=== PATIENT | female | born 1955 | race Caucasian/White ===

== ENCOUNTER → 2021-05-04 | Outpatient (REF) | payer OTHER ==
[~2021-05-04] MED LIST: ATOR40TA75; BUPR-69; CLOP75TA2; FAMO1TAB11; IRON65TA2 PO; LEXA1TAB; MIRA1TAB3; NOXI1TAB PO; OMEP40CA5; POTA1TAB14; PRIM50TA6; PROC10TA5 PO; QUET100T2; ROPI0.5T3; TRAM50TA2; VITA500T40 PO
[2021-05-04 13:55] LABS: BASO % 0.7 % (0.0-1.0); EOS # 0.1 10^3/uL (0.0-0.5); EOS % 1.3 % (0.0-3.0); HEMATOCRIT 32.5 % (36.0-47.0); HEMOGLOBIN 10.1 g/dl (12.0-15.5); LYMPH # 1.6 10^3/uL (1.5-5.0); LYMPH % 34.7 % (24.0-44.0); MEAN CORPUSCULAR HEMOGLOBIN 26.4 pg (27.0-33.0); MEAN CORPUSCULAR HGB CONC 31.1 g/dl (32.0-36.5); MEAN CORPUSCULAR VOLUME 84.9 fl (80.0-96.0); MONO # 0.7 10^3/uL (0.0-0.8); MONO % 15.1 % (2.0-8.0); NEUTROPHILS # 2.2 10^3/uL (1.5-8.5); NEUTROPHILS % 47.8 % (36.0-66.0); PLATELET COUNT, AUTOMATED 190 10^3/uL (150-450); RED BLOOD COUNT 3.83 10^6/uL (4.00-5.40); WHITE BLOOD COUNT 4.6 10^3/uL (4.0-10.0)
[2021-05-04 14:35] LABS: ALBUMIN 3.9 GM/DL (3.2-5.2); ALT/SGPT 19 U/L (12-78); BILIRUBIN,TOTAL 0.4 MG/DL (0.2-1.0); BLOOD UREA NITROGEN 10 MG/DL (7-18); CALCIUM LEVEL 8.5 MG/DL (8.8-10.2); CARBON DIOXIDE LEVEL 30 MEQ/L (21-32); CHLORIDE LEVEL 101 MEQ/L (98-107); CHOLESTEROL LEVEL 210 MG/DL (<200); CREATININE FOR GFR 0.74 MG/DL (0.55-1.30); GLOMERULAR FILTRATION RATE > 60.0 (>45); GLUCOSE, FASTING 76 MG/DL (70-100); HDL CHOLESTEROL 50 MG/DL (>40); LDL CHOLESTEROL 140 MG/DL (<100); NON-HDL-C 160 MG/DL; POTASSIUM SERUM 4.4 MEQ/L (3.5-5.1); SODIUM LEVEL 134 MEQ/L (136-145); TOTAL PROTEIN 7.1 GM/DL (6.4-8.2); TRIGLYCERIDES LEVEL 99 MG/DL (<150)
[2021-05-04 17:23] LABS: HEMOGLOBIN A1c 5.1 %
== END ==
LOC: M SFHCADAM 11:13
PROVIDERS: ATTEND Physician Assistant Medical
DX: C34.92 Malignant neoplasm of unspecified part of left bronchus or lung (principal); I73.9 Peripheral vascular disease, unspecified; K21.9 Gastro-esophageal reflux disease without esophagitis; G25.81 Restless legs syndrome; F32.0 Major depressive disorder, single episode, mild; F51.01 Primary insomnia; I10 Essential (primary) hypertension

== ENCOUNTER → 2021-06-10 | Outpatient (CLI) | payer MEDICARE, OTHER ==
[~2021-06-10] MED LIST changes: -ATOR40TA75; -IRON65TA2 PO; -NOXI1TAB PO; +OMEP-221; -OMEP40CA5; +PROC10TA4 PO; -PROC10TA5 PO; -VITA500T40 PO
== END ==
LOC: M ADAMS 14:47
PROVIDERS: ATTEND Physician Assistant Medical
DX: Z53.9 Procedure and treatment not carried out, unspecified reason (principal)

== ENCOUNTER → 2021-06-10 | Outpatient (REF) | payer OTHER ==
[2021-06-10 17:08] LABS: APPEARANCE, URINE CLEAR (CLEAR); BACTERIA, URINE AUTO NEGATIVE (NEGATIVE); BILIRUBIN, URINE AUTO NEGATIVE (NEGATIVE); BLOOD, URINE BLOOD NEGATIVE (NEGATIVE); COLOR, URINE STRAW (YELLOW); GLUCOSE, URINE (UA) AUTO NEGATIVE (NEGATIVE); KETONE, URINE AUTO NEGATIVE (NEGATIVE); LEUKOCYTE ESTERASE, URINE AUTO NEGATIVE (NEGATIVE); NITRITE, URINE AUTO NEGATIVE (NEGATIVE); PROTEIN, URINE AUTO NEGATIVE (NEGATIVE); RBC, URINE AUTO 1 /HPF (0-3); SPECIFIC GRAVITY URINE AUTO 1.011 (1.002-1.035); SQUAMOUS EPITHELIAL CELL UR AU 1 /HPF (0-6); UROBILINOGEN, URINE AUTO 0.2 mg/dL (0.0-2.0); WBC, URINE AUTO 0 /HPF (0-3)
== END ==
LOC: M SFHCADAM 15:59
PROVIDERS: ATTEND Physician Assistant Medical
DX: R30.0 Dysuria (principal); R35.0 Frequency of micturition; M54.5 Low back pain

== ENCOUNTER → 2021-06-11 | Outpatient (CLI) | payer OTHER ==
--- NOTE | 2021-06-11 13:51 | REP ---
INDICATION: ACUTE MIDLINE LOW BACK PAIN WITHOUT SCIATICA. COMPARISON: None. TECHNIQUE: Five views lumbosacral spine. FINDINGS: There is mild compression of L4. This is of indeterminate age since there are no prior studies for comparison. There is very mild anterolisthesis of L4 on L5. There is no spondylolysis. There is mild disc space narrowing at L4-5. There is sclerosis and spurring at the posterior facet joints of L4-5 and L5-S1. There are vascular calcifications present without definite radiographic evidence of abdominal aortic aneurysm. The posterior elements are intact. There is slight curvature toward the right. IMPRESSION: Mild compression of the L4 vertebral body could be acute. Otherwise there are mild degenerative changes as discussed above. <Electronically signed by Arvind Mckinnon > 06/11/21 [id number]
== END ==
LOC: M ADAMS 12:59
PROVIDERS: ATTEND Physician Assistant Medical
DX: M51.36 Other intervertebral disc degeneration, lumbar region (principal); M54.5 Low back pain

== ENCOUNTER → 2021-08-16 | Outpatient (CLI) | payer MEDICARE, OTHER ==
[~2021-08-16] MED LIST changes: +ATOR40TA75; +GASTROGRAFIN SOLUTION 30ML (Q9963) As Ordered ONE; +IRON65TA2 PO; +ISOVUE-370 76% 100ML VIAL As Ordered ONE; +NOXI1TAB PO; +VITA500T40 PO
--- NOTE | 2021-08-18 15:12 | REP ---
INDICATION: LUNG CA COMPARISON: Multiple the latest 10/23/2020 all from an outside institution TECHNIQUE: Standard helical technique after the intravenous administration of 100 cc Isovue 370 FINDINGS: The mediastinum and pulmonary nacho are essentially unchanged. There is a prominent right hilar lymph nodes status quo. There are no pleural or pericardial effusions. There is no significant change in appearance of the osseous structures. There is a left 6th rib fracture posteriorly which has not yet healed. There are additional left rib fractures, however, they are unchanged and have healed Evaluation of the lung han shows a stable 5 mm size nodule seen in the lateral basal segment of the left lower lobe. There is a stable 4 mm sized pleural base nodule in the right lower lobe. There are incidental calcified granulomas status quo. There are unchanged curvilinear densities in the left lower lobe status quo. Patient is status post left upper lobectomy. There are no new abnormal nodules, masses, or opacities. IMPRESSION: 1. Stable lung nodules. 2. Nonhealing left 6th rib. Clinical correlation is recommended. 3. Other findings as described above. <Electronically signed by Tera Patterson > 08/18/21 [id number]
--- NOTE | 2021-08-18 15:25 | REP ---
INDICATION: LUNG CA. COMPARISON: There are no prior CT examinations of the abdomen and pelvis for comparison. The imaged upper abdomen obtained during the latest CT of the chest of 10/23/2020 from an outside institution was reviewed. TECHNIQUE: Standard helical technique after the intravenous administration of 100 cc Isovue 370. Oral bowel preparatory contrast was also administered prior to the exam. FINDINGS: There are numerous nonenhancing scattered low-density lesions throughout the liver. Some are too small for CT characterization. The larger lesions all have water density Hounsfield unit readings some of which were imaged on the prior exam. There is 1 low-density lesion in the anterior segment of the right lobe of the liver which measures 1 cm and has measurable contrast-enhancement when the immediate phase imaging is compared to the delayed phase imaging. The spleen, pancreas, right adrenal gland, and kidneys are within normal limits. In the left adrenal gland there is a 1.3 cm sized nodule which does not appear to be significantly changed compared to the prior exam and has consistently low density Hounsfield unit readings. There is calcific atherosclerotic change seen in the abdominal aorta. There is no para-aortic adenopathy. The bowel loops and the mesenteries are within normal limits. There is no evidence of free fluid or free air. There is no evidence of a mass or adenopathy. There is a ventral hernia which is unchanged when compared to those lung base images obtained on that prior chest CT. Bone window technique throughout the exam shows spinal degenerative changes and increased density in the upper half of the L4 vertebral body with what appears to be a slight grade 1 age undetermined superior endplate compression deformity. IMPRESSION: 1. Liver lesions as described above. For the most part the ones large enough to characterize with CT represent simple cysts, however, there is a single 1 cm sized lesion which shows measurable enhancement. Pre and post gadolinium enhanced hepatic MRI is recommended. 2. Benign left adrenal gland nodule. 3. Small ventral hernia unchanged as described above. 4. Findings involving L4 as described above which should be correlated clinically. If metastatic disease is of clinical concern then I would recommend follow-up with gadolinium enhanced MRI. 5. Other findings as described above. <Electronically signed by Tera Patterson > 08/18/21 [id number]
== END ==
LOC: M RAD 13:13
PROVIDERS: ATTEND Physician Assistant Medical
DX: S22.32XA Fracture of one rib, left side, initial encounter for closed fracture (principal); R93.5 Abnormal findings on diagnostic imaging of other abdominal regions, including retroperitoneum; C34.92 Malignant neoplasm of unspecified part of left bronchus or lung
CPT/HCPCS: 71260; 74177; Q9963; Q9967

== ENCOUNTER → 2021-08-30 | Outpatient (CLI) | payer MEDICARE, MEDICAID ==
[~2021-08-30] MED LIST changes: -GASTROGRAFIN SOLUTION 30ML (Q9963) As Ordered ONE; -ISOVUE-370 76% 100ML VIAL As Ordered ONE; -OMEP-221; +OMEP40CA5; -PROC10TA4 PO; +PROC10TA5 PO
== END ==
LOC: M PLARAD 11:56
PROVIDERS: ATTEND Internal Medicine Hematology & Oncology
DX: C34.90 Malignant neoplasm of unspecified part of unspecified bronchus or lung (principal)
CPT/HCPCS: 78815; A9552

== ENCOUNTER → 2022-06-16 | Outpatient (CLI) | payer MEDICARE, MEDICAID | LOC: M CARPUL 10:45 | PROVIDERS: ATTEND Internal Medicine Pulmonary Disease | DX: J44.9 Chronic obstructive pulmonary disease, unspecified (principal) ==

== ENCOUNTER → 2022-09-05 | Outpatient (CLI) | payer MEDICARE, MEDICAID | LOC: M PLAIMG 13:01 | PROVIDERS: ATTEND Internal Medicine Pulmonary Disease | DX: C34.12 Malignant neoplasm of upper lobe, left bronchus or lung (principal) ==

== ENCOUNTER 2022-09-20 11:23 | Inpatient (IN) | payer MEDICARE, MEDICAID ==
[~2022-09-20 11:23] MED LIST changes: -CLOP75TA2; +CLOP75TA2 PO; -FAMO1TAB11; +FAMO1TAB11 PO; -LEXA1TAB; +LEXA1TAB PO; -OMEP40CA5; +OMEP40CA5 PO; -QUET100T2; +QUET100T2 PO; -TRAM50TA2; +TRAM50TA2 PO
[2022-09-20 12:16] LABS: BASO % 0.2 % (0.0-1.0); EOS % 0.5 % (0.0-3.0); HEMATOCRIT 33.3 % (36.0-47.0); HEMOGLOBIN 10.4 g/dl (12.0-15.5); LYMPH # 0.3 10^3/uL (1.5-5.0); LYMPH % 7.9 % (24.0-44.0); MEAN CORPUSCULAR HEMOGLOBIN 28.1 pg (27.0-33.0); MEAN CORPUSCULAR HGB CONC 31.2 g/dl (32.0-36.5); MONO # 0.4 10^3/uL (0.0-0.8); MONO % 8.3 % (2.0-8.0); NEUTROPHILS # 3.5 10^3/uL (1.5-8.5); NEUTROPHILS % 82.9 % (36.0-66.0); PLATELET COUNT, AUTOMATED 102 10^3/uL (150-450); WHITE BLOOD COUNT 4.2 10^3/uL (4.0-10.0)
[2022-09-20 12:37] LABS: BLOOD UREA NITROGEN 14 MG/DL (9-23); CALCIUM LEVEL 8.3 MG/DL (8.3-10.6); CARBON DIOXIDE LEVEL 25 MMOL/L (20-31); CHLORIDE LEVEL 105 MMOL/L (98-107); CREATININE FOR GFR 0.83 MG/DL (0.55-1.30); GLOMERULAR FILTRATION RATE > 60.0 (>45); GLUCOSE, FASTING 105 MG/DL (74-106); POTASSIUM SERUM 3.9 MMOL/L (3.5-5.1); SODIUM LEVEL 137 MMOL/L (136-145)
[2022-09-20 12:41] LABS: THYROID STIMULATING HORMONE 2.759 uIU/ML (0.55-4.78)
[2022-09-20] MEDS ORDERED: METOPROLOL TART 25 MG TABLET PO ONE ×2 (12:45→13:40)
[2022-09-20] MEDS: METOPROLOL 5 MG/5 ML VIAL IV PRN ×6 (13:02→14:19)
[2022-09-20] MEDS ORDERED: ACETAMINOPHEN TAB 650MG DOSE (2X325MG) PO ONE (13:15)
[2022-09-20] MEDS ORDERED: APIXABAN 5 MG TAB (ELIQUIS) PO ONE (14:00)
[2022-09-20] MEDS ORDERED: ALBUTEROL 90 MCG/ACT 8GM HFA INHALER INH PRN (17:35)
[2022-09-20] MEDS ORDERED: ISOVUE-370 76% 100ML VIAL As Ordered ONE (18:06)
[2022-09-20] MEDS ORDERED: PANTOPRAZOLE 40MG TAB (PROTONIX) PO ONE (18:30)
[2022-09-20 18:44] LABS: HEMOGLOBIN A1c 5.2 % (4.0-6.0)
[2022-09-20] MEDS ORDERED: ROPI4TAB3 PO (19:20)
[2022-09-20] MEDS ORDERED: BENZ-18 PO (19:20)
[2022-09-20] MEDS ORDERED: TREL1AER INH (19:20)
[2022-09-20 19:24] LABS: INR 1.36
[2022-09-20 19:25] LABS: PARTIAL THROMBOPLASTIN TIME 29.6 SECONDS (24.8-34.2)
[2022-09-20] MEDS ORDERED: LEXA1TAB PO (19:35)
[2022-09-20] MEDS ORDERED: PRAM0.123 PO (19:35)
[2022-09-20] MEDS ORDERED: GABA-1171 PO (19:50)
[2022-09-20] MEDS ORDERED: LOSA50TA28 PO (19:50)
[2022-09-20] MEDS ORDERED: HOME MED LIST COMPLETE! XX SCH (19:55)
[2022-09-20 20:50] LABS: CHOLESTEROL LEVEL 129 MG/DL (<200); CHOLESTEROL RISK RATIO 2.14 (<5); HDL CHOLESTEROL 60.2 MG/DL (>40); LDL CHOLESTEROL 59.8 MG/DL (<100); NON-HDL-C 69 MG/DL; TRIGLYCERIDES LEVEL 45 MG/DL (<150)
[2022-09-20] MEDS: METOPROLOL TART 50 MG TAB PO SCH (21:00)
[2022-09-20 22:12] VITALS: BP 145/94
[2022-09-20] MEDS ORDERED: QUEtiapine FUMARATE 100 MG TAB PO ONE (23:15)
[2022-09-20] MEDS: OSELTAMIVIR PHOSPHATE 75 MG CAP (TAMIFLU) PO SCH (23:56)
[2022-09-21] VITALS (9 sets, daily range): BP systolic 132–160; BP diastolic 84–99
[2022-09-21] MEDS: IPRATROPIUM 0.5MG/ALBUTEROL 2.5MG INH SOL UD 3ML (DUONEB) NEB SCH ×4 (01:00→19:23)
[2022-09-21] MEDS: METOPROLOL TART 50 MG TAB PO SCH (04:59)
[2022-09-21 05:49] LABS: HEMATOCRIT 32.4 % (36.0-47.0); HEMOGLOBIN 10.4 g/dl (12.0-15.5); MEAN CORPUSCULAR HEMOGLOBIN 28.4 pg (27.0-33.0); MEAN CORPUSCULAR HGB CONC 32.1 g/dl (32.0-36.5); MEAN CORPUSCULAR VOLUME 88.5 fl (80.0-96.0); PLATELET COUNT, AUTOMATED 106 10^3/uL (150-450); RED BLOOD COUNT 3.66 10^6/uL (4.00-5.40); WHITE BLOOD COUNT 3.2 10^3/uL (4.0-10.0)
[2022-09-21 06:13] LABS: BLOOD UREA NITROGEN 16 MG/DL (9-23); CALCIUM LEVEL 8.1 MG/DL (8.3-10.6); CARBON DIOXIDE LEVEL 26 MMOL/L (20-31); CHLORIDE LEVEL 103 MMOL/L (98-107); CREATININE FOR GFR 0.95 MG/DL (0.55-1.30); GLOMERULAR FILTRATION RATE > 60.0 (>45); GLUCOSE, FASTING 110 MG/DL (74-106); POTASSIUM SERUM 3.8 MMOL/L (3.5-5.1); SODIUM LEVEL 136 MMOL/L (136-145)
[2022-09-21] MEDS: ROSUVASTATIN 10 MG TAB (CRESTOR) PO SCH (08:22)
[2022-09-21] MEDS: APIXABAN 5 MG TAB (ELIQUIS) PO SCH ×2 (08:22→20:03)
[2022-09-21] MEDS: OSELTAMIVIR PHOSPHATE 75 MG CAP (TAMIFLU) PO SCH ×2 (08:22→20:03)
[2022-09-21] MEDS: FERROUS SULFATE 325MG TAB PO SCH (08:22)
[2022-09-21] MEDS: GABAPENTIN 100 MG CAP PO SCH ×2 (09:00→20:03)
[2022-09-21] MEDS ORDERED: ELIQ5TAB PO (09:08)
[2022-09-21] MEDS ORDERED: BENZONATATE 100MG CAPSULE PO PRN (11:55)
[2022-09-21] MEDS: rOPINIRole 1MG TAB PO SCH ×3 (12:52→20:03)
[2022-09-21] MEDS: ESCITALOPRAM OXALATE 10 MG TAB (LEXAPRO) PO SCH (12:52)
[2022-09-21] MEDS ORDERED: METOPROLOL TART 25 MG TABLET PO ONE (15:25)
[2022-09-21] MEDS: FAMOTIDINE 20 MG TAB PO SCH (15:32)
[2022-09-21] MEDS ORDERED: ONDANSETRON 4MG 2ML VIAL IV PRN (17:25)
[2022-09-21] MEDS: METOPROLOL TARTRATE 100MG TAB PO SCH (20:03)
[2022-09-21] MEDS: QUEtiapine FUMARATE 100 MG TAB PO SCH (20:03)
[2022-09-21] MEDS ORDERED: METOPROLOL TART 25 MG TABLET PO SCH (21:00)
[2022-09-22] VITALS (7 sets, daily range): BP systolic 120–150; BP diastolic 77–98
[2022-09-22] MEDS: IPRATROPIUM 0.5MG/ALBUTEROL 2.5MG INH SOL UD 3ML (DUONEB) NEB SCH ×4 (01:15→19:56)
[2022-09-22] MEDS ORDERED: FUROSEMIDE 20 MG TAB PO ONE (06:25)
[2022-09-22 08:11] LABS: BASO % 0.2 % (0.0-1.0); EOS % 0.2 % (0.0-3.0); HEMATOCRIT 36.6 % (36.0-47.0); HEMOGLOBIN 11.3 g/dl (12.0-15.5); LYMPH # 1.6 10^3/uL (1.5-5.0); MEAN CORPUSCULAR HEMOGLOBIN 27.9 pg (27.0-33.0); MEAN CORPUSCULAR HGB CONC 30.9 g/dl (32.0-36.5); MEAN CORPUSCULAR VOLUME 90.4 fl (80.0-96.0); MONO # 0.7 10^3/uL (0.0-0.8); MONO % 13.7 % (2.0-8.0); NEUTROPHILS # 2.5 10^3/uL (1.5-8.5); NEUTROPHILS % 52.5 % (36.0-66.0); PLATELET COUNT, AUTOMATED 120 10^3/uL (150-450); RED BLOOD COUNT 4.05 10^6/uL (4.00-5.40); WHITE BLOOD COUNT 4.8 10^3/uL (4.0-10.0)
[2022-09-22] MEDS: OSELTAMIVIR PHOSPHATE 75 MG CAP (TAMIFLU) PO SCH ×2 (08:29→21:23)
[2022-09-22] MEDS: rOPINIRole 1MG TAB PO SCH ×4 (08:30→21:24)
[2022-09-22] MEDS: GABAPENTIN 100 MG CAP PO SCH ×2 (08:30→21:24)
[2022-09-22] MEDS: APIXABAN 5 MG TAB (ELIQUIS) PO SCH ×2 (08:30→21:24)
[2022-09-22] MEDS: FERROUS SULFATE 325MG TAB PO SCH (08:31)
[2022-09-22] MEDS: ROSUVASTATIN 10 MG TAB (CRESTOR) PO SCH (08:31)
[2022-09-22] MEDS: FAMOTIDINE 20 MG TAB PO SCH (08:31)
[2022-09-22] MEDS: ESCITALOPRAM OXALATE 10 MG TAB (LEXAPRO) PO SCH (08:31)
[2022-09-22] MEDS: METOPROLOL TARTRATE 100MG TAB PO SCH ×2 (08:32→21:25)
[2022-09-22] MEDS ORDERED: ESCITALOPRAM OXALATE 10 MG TAB (LEXAPRO) PO SCH (09:00)
[2022-09-22] MEDS ORDERED: DIGOXIN INJ 0.5 MG/2 ML AMP IV ONE (13:00)
[2022-09-22] MEDS: FUROSEMIDE 20MG/2ML VIAL IV SCH (16:34)
[2022-09-22] MEDS ORDERED: DIGOXIN 0.25 MG TAB PO ONE (19:00)
[2022-09-22] MEDS: QUEtiapine FUMARATE 100 MG TAB PO SCH (21:23)
[2022-09-23] MEDS: IPRATROPIUM 0.5MG/ALBUTEROL 2.5MG INH SOL UD 3ML (DUONEB) NEB SCH ×2 (02:00→08:00)
[2022-09-23 04:00] VITALS: BP 133/83
[2022-09-23 08:00] VITALS: BP 165/87
[2022-09-23] MEDS: ESCITALOPRAM OXALATE 10 MG TAB (LEXAPRO) PO SCH (08:20)
[2022-09-23] MEDS: GABAPENTIN 100 MG CAP PO SCH (08:20)
[2022-09-23] MEDS: OSELTAMIVIR PHOSPHATE 75 MG CAP (TAMIFLU) PO SCH (08:20)
[2022-09-23] MEDS: APIXABAN 5 MG TAB (ELIQUIS) PO SCH (08:20)
[2022-09-23] MEDS: FAMOTIDINE 20 MG TAB PO SCH (08:20)
[2022-09-23] MEDS: ROSUVASTATIN 10 MG TAB (CRESTOR) PO SCH (08:20)
[2022-09-23] MEDS: FERROUS SULFATE 325MG TAB PO SCH (08:20)
[2022-09-23] MEDS: rOPINIRole 1MG TAB PO SCH (08:20)
[2022-09-23] MEDS: METOPROLOL TARTRATE 100MG TAB PO SCH (08:21)
[2022-09-23] MEDS: FUROSEMIDE 20MG/2ML VIAL IV SCH (08:22)
[2022-09-23] MEDS ORDERED: DIGO0.123 PO (09:18)
[2022-09-23] MEDS ORDERED: OSEL75CA PO (09:18)
[2022-09-23] MEDS ORDERED: METO100T5 PO (09:18)
== END 2022-09-23 10:59 | disposition home or self-care (01) | DRG 309 ==
LOC: M ED 11:23 → EDBD 11:23 → M ED INP 16:46 → M PCU 22:06
PROVIDERS: ADMIT Internal Medicine; ATTEND Internal Medicine
PROC: B246ZZZ Ultrasonography of Right and Left Heart (ICD-10-PCS; principal; 2022-09-21)
DX: I48.91 Unspecified atrial fibrillation (principal); I50.22 Chronic systolic (congestive) heart failure; F32.A Depression, unspecified; F41.9 Anxiety disorder, unspecified; K21.9 Gastro-esophageal reflux disease without esophagitis; D50.9 Iron deficiency anemia, unspecified; G25.81 Restless legs syndrome; I73.9 Peripheral vascular disease, unspecified; D69.6 Thrombocytopenia, unspecified; R14.0 Abdominal distension (gaseous); I71.20 Thoracic aortic aneurysm, without rupture, unspecified; I11.0 Hypertensive heart disease with heart failure; J10.1 Influenza due to other identified influenza virus with other respiratory manifestations; J44.9 Chronic obstructive pulmonary disease, unspecified; I42.8 Other cardiomyopathies; Z85.118 Personal history of other malignant neoplasm of bronchus and lung; Z90.2 Acquired absence of lung [part of]; Z87.891 Personal history of nicotine dependence; Z95.820 Peripheral vascular angioplasty status with implants and grafts; Z79.01 Long term (current) use of anticoagulants; Z79.899 Other long term (current) drug therapy; Z88.6 Allergy status to analgesic agent

== ENCOUNTER 2022-10-17 19:55 | Observation (INO) | payer MEDICARE, MEDICAID ==
[~2022-10-17] VITALS: Ht 154.9 cm; Wt 78.7 kg
[~2022-10-17 19:55] MED LIST changes: +BENZ-18 PO; +DIGO0.123 PO; +ELIQ5TAB PO; +GABA-1171 PO; +LOSA50TA28 PO; +METO100T5 PO; +OSEL75CA PO; +PRAM0.123 PO; +ROPI4TAB3 PO; +TREL1AER INH
[2022-10-17] MEDS ORDERED: AMIO200T49 PO (20:45)
[2022-10-17] MEDS ORDERED: LOSA50TA28 PO (20:45)
[2022-10-17] MEDS ORDERED: ATOR40TA75 PO (20:45)
[2022-10-18] MEDS ORDERED: ALBUTEROL SULFATE 2.5MG/0.5ML INH NEB SOLN INH ONE ×2 (07:10→17:30)
[2022-10-18] MEDS ORDERED: IPRATROPIUM 0.5MG/ALBUTEROL 2.5MG INH SOL UD 3ML (DUONEB) NEB ONE (07:10)
[2022-10-18] MEDS ORDERED: methylPREDNISolone 125MG 2ML VIAL IV ONE (07:10)
[2022-10-18] MEDS ORDERED: LOSARTAN 25 MG TAB PO ONE (07:15)
[2022-10-18] MEDS ORDERED: METOPROLOL TARTRATE 100MG TAB PO ONE (07:15)
[2022-10-18] MEDS ORDERED: APIXABAN 5 MG TAB (ELIQUIS) PO ONE (07:15)
[2022-10-18] MEDS ORDERED: rOPINIRole 2MG TAB PO STA (08:04)
[2022-10-18 08:09] LABS: BASO % 0.3 % (0.0-1.0); EOS % 0.5 % (0.0-3.0); HEMATOCRIT 33.5 % (36.0-47.0); HEMOGLOBIN 10.8 g/dl (12.0-15.5); LYMPH # 0.9 10^3/uL (1.5-5.0); LYMPH % 15.2 % (24.0-44.0); MEAN CORPUSCULAR HEMOGLOBIN 28.8 pg (27.0-33.0); MEAN CORPUSCULAR HGB CONC 32.2 g/dl (32.0-36.5); MEAN CORPUSCULAR VOLUME 89.3 fl (80.0-96.0); MONO # 0.4 10^3/uL (0.0-0.8); MONO % 6.5 % (2.0-8.0); NEUTROPHILS # 4.6 10^3/uL (1.5-8.5); NEUTROPHILS % 76.8 % (36.0-66.0); PLATELET COUNT, AUTOMATED 114 10^3/uL (150-450); RED BLOOD COUNT 3.75 10^6/uL (4.00-5.40)
[2022-10-18 08:16] VITALS: BP 167/83
[2022-10-18] MEDS ORDERED: ISOVUE-370 76% 100ML VIAL As Ordered ONE (08:35)
[2022-10-18 08:41] LABS: ALBUMIN 3.9 G/DL (3.2-5.2); BILIRUBIN,DIRECT 0.4 MG/DL (<0.4); BILIRUBIN,TOTAL 0.9 MG/DL (0.3-1.2); CALCIUM LEVEL 8.5 MG/DL (8.3-10.6); CREATININE FOR GFR 0.98 MG/DL (0.55-1.30); GLOMERULAR FILTRATION RATE 59.9 (>45); POTASSIUM SERUM 4.2 MMOL/L (3.5-5.1); TOTAL PROTEIN 6.6 G/DL (5.7-8.2)
[2022-10-18 08:43] LABS: THYROID STIMULATING HORMONE 8.95 uIU/ML (0.55-4.78); THYROXINE (T4) 9.5 UG/DL (4.5-10.9)
[2022-10-18 08:52] LABS: INR 1.09; PROTHROMBIN TIME 14.3 SECONDS (12.5-14.5)
[2022-10-18 08:53] LABS: PARTIAL THROMBOPLASTIN TIME 28.1 SECONDS (24.8-34.2)
[2022-10-18] MEDS ORDERED: ELIQ5TAB PO (09:59)
[2022-10-18] MEDS ORDERED: LOSA25TA13 PO (09:59)
[2022-10-18] MEDS ORDERED: METO100T5 PO (09:59)
[2022-10-18] MEDS ORDERED: POTA-151 PO (10:09)
[2022-10-18] MEDS ORDERED: CLOT10TR PO (10:09)
[2022-10-18] MEDS ORDERED: ALB2.5NEB NEB (10:09)
[2022-10-18] MEDS ORDERED: CILO50TA2 PO (10:14)
[2022-10-18] MEDS ORDERED: HOME MED LIST COMPLETE! XX SCH (10:15)
[2022-10-18] MEDS ORDERED: BENZONATATE 100MG CAPSULE PO PRN (12:05)
[2022-10-18] MEDS ORDERED: FAMOTIDINE 20 MG TAB PO PRN (12:05)
[2022-10-18 12:36] LABS: CK-MB VALUE MASS 2.1 NG/ML (<3.6); MB/CK RELATIVE INDEX 2.65 (< OR =4)
[2022-10-18 12:42] LABS: CK-MB VALUE MASS 2.6 NG/ML (<3.6); MB/CK RELATIVE INDEX 3.33 (< OR =4)
[2022-10-18] MEDS: FUROSEMIDE 40MG/4ML VIAL IV SCH ×2 (13:21→21:59)
[2022-10-18] MEDS: POTASSIUM CHLORIDE 10MEQ SR TABLET PO SCH (13:43)
[2022-10-18] MEDS: ATORVASTATIN 20 MG TAB PO SCH (13:44)
[2022-10-18] MEDS: AMIODARONE 200 MG TAB (PACERONE) PO SCH (13:44)
[2022-10-18] MEDS: ESCITALOPRAM OXALATE 10 MG TAB (LEXAPRO) PO SCH (13:44)
[2022-10-18] MEDS: rOPINIRole 1MG TAB PO SCH ×2 (16:36→22:02)
[2022-10-18] MEDS ORDERED: LIDOCAINE 2% 100MG/5ML SDV (FOR ANES.) As Ordered ONE (18:31)
[2022-10-18] MEDS ORDERED: propofoL 200 MG/20 ML VIAL As Ordered ONE (18:31)
[2022-10-18] MEDS ORDERED: fentaNYL 100 MCG/2 ML INJECTION As Ordered ONE (18:31)
[2022-10-18 19:53] VITALS: BP 136/81
[2022-10-18] MEDS ORDERED: METOPROLOL TARTRATE 100MG TAB PO SCH (21:00)
[2022-10-18] MEDS ORDERED: QUEtiapine FUMARATE 100 MG TAB PO SCH (21:00)
[2022-10-18] MEDS ORDERED: ALBUTEROL SULFATE 2.5MG/0.5ML INH NEB SOLN NEB SCH (21:00)
[2022-10-18] MEDS ORDERED: RAMELTEON 8 MG TAB (ROZEREM) PO PRN (21:25)
[2022-10-18] MEDS ORDERED: ACETAMINOPHEN TAB 650MG DOSE (2X325MG) PO PRN (21:35)
[2022-10-18] MEDS: APIXABAN 5 MG TAB (ELIQUIS) PO SCH (22:03)
[2022-10-18] MEDS: GABAPENTIN 100 MG CAP PO SCH (22:04)
[2022-10-18] MEDS: ALBUTEROL SULFATE 2.5MG/0.5ML INH NEB SOLN NEB SCH (22:08)
[2022-10-18] MEDS: FLUTICASONE HFA 110MCG 12GM INHALER (FLOVENT) INH SCH (22:11)
[2022-10-18] MEDS: PRAMIPEXOLE (MIRAPEX) 0.125 MG TAB PO SCH (23:25)
[2022-10-19] VITALS: BP 129/65
[2022-10-19 04:00] VITALS: BP 165/74
[2022-10-19 05:40] LABS: HEMATOCRIT 33.9 % (36.0-47.0); HEMOGLOBIN 10.9 g/dl (12.0-15.5); MEAN CORPUSCULAR HEMOGLOBIN 28.5 pg (27.0-33.0); MEAN CORPUSCULAR HGB CONC 32.2 g/dl (32.0-36.5); MEAN CORPUSCULAR VOLUME 88.7 fl (80.0-96.0); PLATELET COUNT, AUTOMATED 139 10^3/uL (150-450); RED BLOOD COUNT 3.82 10^6/uL (4.00-5.40); WHITE BLOOD COUNT 8.2 10^3/uL (4.0-10.0)
[2022-10-19 06:15] LABS: MAGNESIUM LEVEL 1.9 MG/DL (1.8-2.4)
[2022-10-19] MEDS: FLUTICASONE HFA 110MCG 12GM INHALER (FLOVENT) INH SCH (06:17)
[2022-10-19] MEDS: ALBUTEROL SULFATE 2.5MG/0.5ML INH NEB SOLN NEB SCH ×2 (06:17→19:38)
[2022-10-19 06:18] LABS: CALCIUM LEVEL 8.2 MG/DL (8.3-10.6); CREATININE FOR GFR 1.44 MG/DL (0.55-1.30); GLOMERULAR FILTRATION RATE 38.4 (>45); POTASSIUM SERUM 4.3 MMOL/L (3.5-5.1)
[2022-10-19 07:36] VITALS: BP 155/84
[2022-10-19] MEDS ORDERED: LR 500 ML IV ONE (08:10)
[2022-10-19] MEDS ORDERED: LOSARTAN 25 MG TAB PO SCH (09:00)
[2022-10-19] MEDS: POTASSIUM CHLORIDE 10MEQ SR TABLET PO SCH (09:04)
[2022-10-19] MEDS: GABAPENTIN 100 MG CAP PO SCH ×2 (09:04→21:28)
[2022-10-19] MEDS: rOPINIRole 1MG TAB PO SCH ×4 (09:05→21:28)
[2022-10-19] MEDS: APIXABAN 5 MG TAB (ELIQUIS) PO SCH ×2 (09:05→21:28)
[2022-10-19] MEDS: ATORVASTATIN 20 MG TAB PO SCH (09:05)
[2022-10-19] MEDS: ESCITALOPRAM OXALATE 10 MG TAB (LEXAPRO) PO SCH (09:05)
[2022-10-19] MEDS: AMIODARONE 200 MG TAB (PACERONE) PO SCH (09:05)
[2022-10-19 12:00] VITALS: BP 160/62
[2022-10-19 12:11] LABS: CALCIUM LEVEL 7.9 MG/DL (8.3-10.6); CREATININE FOR GFR 1.58 MG/DL (0.55-1.30); GLOMERULAR FILTRATION RATE 34.5 (>45); POTASSIUM SERUM 4.2 MMOL/L (3.5-5.1)
[2022-10-19] MEDS: IPRATROPIUM 0.5MG/ALBUTEROL 2.5MG INH SOL UD 3ML (DUONEB) NEB PRN (12:31)
[2022-10-19 15:19] LABS: CREATININE,RANDOM URINE 206.6 MG/DL
[2022-10-19 16:00] VITALS: BP 145/62
[2022-10-19 19:55] VITALS: BP_SYST 154; BP_SYST 160; BP_DIAS 68; BP_DIAS 76
[2022-10-19] MEDS: PRAMIPEXOLE (MIRAPEX) 0.125 MG TAB PO SCH (21:28)
[2022-10-20] MEDS: IPRATROPIUM 0.5MG/ALBUTEROL 2.5MG INH SOL UD 3ML (DUONEB) NEB PRN (00:18)
[2022-10-20] MEDS: FLUTICASONE HFA 110MCG 12GM INHALER (FLOVENT) INH SCH ×2 (00:23→09:59)
[2022-10-20 00:45] VITALS: BP 164/94
[2022-10-20 04:34] VITALS: BP 178/88
[2022-10-20 05:19] LABS: HEMATOCRIT 31.9 % (36.0-47.0); HEMOGLOBIN 10.3 g/dl (12.0-15.5); MEAN CORPUSCULAR HEMOGLOBIN 28.8 pg (27.0-33.0); MEAN CORPUSCULAR HGB CONC 32.3 g/dl (32.0-36.5); MEAN CORPUSCULAR VOLUME 89.1 fl (80.0-96.0); PLATELET COUNT, AUTOMATED 115 10^3/uL (150-450); RED BLOOD COUNT 3.58 10^6/uL (4.00-5.40); WHITE BLOOD COUNT 6.2 10^3/uL (4.0-10.0)
[2022-10-20 05:38] LABS: CALCIUM LEVEL 8.1 MG/DL (8.3-10.6); CREATININE FOR GFR 1.11 MG/DL (0.55-1.30); GLOMERULAR FILTRATION RATE 51.9 (>45); POTASSIUM SERUM 4.3 MMOL/L (3.5-5.1)
[2022-10-20] MEDS: ALBUTEROL SULFATE 2.5MG/0.5ML INH NEB SOLN NEB SCH (07:17)
[2022-10-20 07:38] VITALS: BP 178/90
[2022-10-20] MEDS: AMIODARONE 200 MG TAB (PACERONE) PO SCH (08:43)
[2022-10-20] MEDS: POTASSIUM CHLORIDE 10MEQ SR TABLET PO SCH (08:44)
[2022-10-20] MEDS: ATORVASTATIN 20 MG TAB PO SCH (08:44)
[2022-10-20] MEDS: APIXABAN 5 MG TAB (ELIQUIS) PO SCH (08:45)
[2022-10-20] MEDS: ESCITALOPRAM OXALATE 10 MG TAB (LEXAPRO) PO SCH (08:45)
[2022-10-20] MEDS: rOPINIRole 1MG TAB PO SCH (08:45)
[2022-10-20] MEDS: GABAPENTIN 100 MG CAP PO SCH (08:45)
[2022-10-20] MEDS ORDERED: GUAI20TA PO (10:10)
[2022-10-20] MEDS ORDERED: IPRA0.00 NEB (10:10)
== END 2022-10-20 12:20 | disposition home or self-care (01) ==
LOC: M ED 19:55 → EDBD 19:55 → M ED INP 19:56 → M PCU 10-18 19:53
PROVIDERS: ADMIT Student in an Organized Health Care Education/Training Program; ATTEND Student in an Organized Health Care Education/Training Program
DX: I48.91 Unspecified atrial fibrillation (principal); B34.1 Enterovirus infection, unspecified; B34.8 Other viral infections of unspecified site; R00.1 Bradycardia, unspecified; N17.9 Acute kidney failure, unspecified; E87.1 Hypo-osmolality and hyponatremia; I11.0 Hypertensive heart disease with heart failure; I50.20 Unspecified systolic (congestive) heart failure; J44.9 Chronic obstructive pulmonary disease, unspecified; J90 Pleural effusion, not elsewhere classified; I73.9 Peripheral vascular disease, unspecified; G25.81 Restless legs syndrome; G47.00 Insomnia, unspecified; G62.9 Polyneuropathy, unspecified; K21.9 Gastro-esophageal reflux disease without esophagitis; F32.A Depression, unspecified; E78.5 Hyperlipidemia, unspecified; Z85.118 Personal history of other malignant neoplasm of bronchus and lung; Z90.2 Acquired absence of lung [part of]; R06.02 Shortness of breath; D50.9 Iron deficiency anemia, unspecified; Z79.899 Other long term (current) drug therapy; Z79.01 Long term (current) use of anticoagulants; Z79.51 Long term (current) use of inhaled steroids; Z88.8 Allergy status to other drugs, medicaments and biological substances
CPT/HCPCS: 36415; 71045; 71275; 74177; 80047; 80048; 80076; 82550; 82553; 82570; 83605; 83735; 83880; 83935; 84145; 84300; 84436; 84443; 84484; 85025; 85027; 85610; 85730; 87040; 87486; 87581; 87633; 87798; 92960; 93005; 93041; 94640; 94760; 96374; 99285; G0378; Q9967

== ENCOUNTER → 2022-12-12 | Outpatient (CLI) | payer MEDICAID, MEDICARE ==
[~2022-12-12] MED LIST changes: +ALB2.5NEB NEB; +AMIO200T49 PO; +ATOR40TA75 PO; +CILO50TA2 PO; +CLOT10TR PO; +GUAI20TA PO; +IPRA0.00 NEB; +LOSA25TA13 PO; +ONDA4TAB6; +POTA-151 PO
== END ==
LOC: M WHC 09:10
PROVIDERS: ATTEND Family Medicine
DX: K80.20 Calculus of gallbladder without cholecystitis without obstruction (principal)

== ENCOUNTER 2023-02-26 09:13 | Inpatient (IN) | payer MEDICARE, OTHER ==
[~2023-02-26] VITALS: Ht 154.9 cm; Wt 74.7 kg
[2023-02-26] MEDS: TIOTROPIUM INHALER/CAPSULE (SPIRIVA) INH SCH (08:00)
[~2023-02-26 09:13] MED LIST changes: +POTA-298; -POTA1TAB14
[2023-02-26] MEDS ORDERED: TRAM50TA2 PO (09:39)
[2023-02-26] MEDS ORDERED: TIZA10TA PO (09:39)
[2023-02-26] MEDS ORDERED: MECL-86 PO (09:39)
[2023-02-26 10:12] LABS: BASO % 0.2 % (0.0-1.0); EOS # 0.1 10^3/uL (0.0-0.5); EOS % 1.8 % (0.0-3.0); HEMATOCRIT 27.1 % (36.0-47.0); HEMOGLOBIN 9.1 g/dl (12.0-15.5); LYMPH # 0.8 10^3/uL (1.5-5.0); LYMPH % 15.9 % (24.0-44.0); MEAN CORPUSCULAR HGB CONC 33.6 g/dl (32.0-36.5); MEAN CORPUSCULAR VOLUME 86.3 fl (80.0-96.0); MONO # 0.4 10^3/uL (0.0-0.8); MONO % 7.8 % (2.0-8.0); NEUTROPHILS # 3.8 10^3/uL (1.5-8.5); NEUTROPHILS % 73.5 % (36.0-66.0); PLATELET COUNT, AUTOMATED 179 10^3/uL (150-450); RED BLOOD COUNT 3.14 10^6/uL (4.00-5.40); WHITE BLOOD COUNT 5.1 10^3/uL (4.0-10.0)
[2023-02-26 10:36] LABS: INR 1.43; PROTHROMBIN TIME 17.7 SECONDS (12.5-14.5)
[2023-02-26 10:37] LABS: CK-MB VALUE MASS 4.6 NG/ML (<3.6); LIPASE 49 U/L (12-53)
[2023-02-26 10:39] LABS: CPK CREATINE PHOSPHOKINASE 118 U/L (34-145); MB/CK RELATIVE INDEX 3.89 (< OR =4)
[2023-02-26 10:40] LABS: ALBUMIN 3.2 G/DL (3.2-5.2); ALKALINE PHOSPHATASE 113 U/L (46-116); ALT/SGPT 16 U/L (7.0-40); AST/SGOT 17 U/L (<34); BILIRUBIN,DIRECT 0.2 MG/DL (<0.4); BILIRUBIN,TOTAL 0.4 MG/DL (0.3-1.2); BLOOD UREA NITROGEN 14 MG/DL (9-23); CALCIUM LEVEL 8.4 MG/DL (8.3-10.6); CARBON DIOXIDE LEVEL 25 MMOL/L (20-31); CHLORIDE LEVEL 102 MMOL/L (98-107); GLOMERULAR FILTRATION RATE > 60.0 (>39); GLUCOSE, FASTING 106 MG/DL (74-106); POTASSIUM SERUM 4.1 MMOL/L (3.5-5.1); SODIUM LEVEL 133 MMOL/L (136-145); TOTAL PROTEIN 5.7 G/DL (5.7-8.2)
[2023-02-26 10:41] LABS: FREE T4 0.95 NG/DL (0.89-1.76); THYROID STIMULATING HORMONE 5.616 uIU/ML (0.55-4.78)
[2023-02-26] MEDS ORDERED: ISOVUE-370 76% 100ML VIAL As Ordered ONE (10:50)
[2023-02-26 12:06] LABS: CK-MB VALUE MASS 5.3 NG/ML (<3.6); MB/CK RELATIVE INDEX 4.24 (< OR =4)
[2023-02-26] MEDS ORDERED: cefTRIAXone SOD 1 GM in D5W MINI-BAG PLUS 50 ML IV ONE (12:45)
[2023-02-26] MEDS ORDERED: DOXYCYCLINE HYCLATE 100MG TABLET PO ONE (13:20)
[2023-02-26] MEDS ORDERED: methylPREDNISolone 125MG 2ML VIAL IV ONE (13:20)
[2023-02-26] MEDS ORDERED: IPRATROPIUM 0.5MG/ALBUTEROL 2.5MG INH SOL UD 3ML (DUONEB) NEB ONE (13:20)
[2023-02-26] MEDS ORDERED: DOXYCYCLINE HYCLATE 100 MG in D5W MINI-BAG PLUS 100 ML IV SCH (13:55)
[2023-02-26] MEDS ORDERED: ACET-897 PO (14:20)
[2023-02-26] MEDS ORDERED: HOME MED LIST COMPLETE! XX SCH (14:20)
[2023-02-26] MEDS ORDERED: METO1TAB7 PO (14:20)
[2023-02-26] MEDS ORDERED: PANT40TA29 PO (14:20)
[2023-02-26] MEDS ORDERED: ONDANSETRON 4MG 2ML VIAL IV PRN (14:35)
[2023-02-26] MEDS ORDERED: FUROSEMIDE 100MG/10ML VIAL IV ONE (14:55)
[2023-02-26] MEDS ORDERED: tiZANidine 4 MG TAB PO PRN (14:55)
[2023-02-26 15:26] LABS: IRON (FE) 34 UG/DL (50-170); PERCENT SATURATION 12.9 % (13.2-45.0); TOTAL IRON BINDING CAPACITY 264 UG/DL (250-425)
[2023-02-26] MEDS: ALBUTEROL SULFATE 2.5MG/0.5ML INH NEB SOLN NEB SCH ×3 (15:28→23:10)
[2023-02-26] MEDS: SODIUM CHLORIDE HYPERTONIC 3% 15ML NEB SOL INH SCH ×3 (15:29→23:10)
[2023-02-26 15:30] LABS: FERRITIN 78.2 NG/ML (7.3-270.7)
[2023-02-26 15:31] LABS: FOLATE 7.25 NG/ML (>5.4); VITAMIN B12 LEVEL 681 PG/ML (211-911)
[2023-02-26 15:35] VITALS: BP 161/55
[2023-02-26] MEDS ORDERED: IPRATROPIUM 0.5MG/ALBUTEROL 2.5MG INH SOL UD 3ML (DUONEB) NEB SCH (16:00)
[2023-02-26] MEDS: rOPINIRole 1MG TAB PO SCH ×2 (16:59→20:22)
[2023-02-26] MEDS ORDERED: CILOSTAZOL 100 MG TAB (PLETAL) PO SCH (17:30)
[2023-02-26] MEDS: guaiFENesin/CODEINE SYRUP 5 ML UDC PO PRN (18:24)
[2023-02-26] MEDS: SYMBICORT 160/4.5MCG INHALER 6GM INH SCH (19:15)
[2023-02-26 20:09] VITALS: BP 136/62
[2023-02-26] MEDS: PANTOPRAZOLE 40MG TAB (PROTONIX) PO SCH (20:22)
[2023-02-26] MEDS: methylPREDNISolone 40MG 1ML VIAL IV SCH (20:22)
[2023-02-26] MEDS: AMIODARONE 200 MG TAB (PACERONE) PO SCH (20:23)
[2023-02-26] MEDS: APIXABAN 5 MG TAB (ELIQUIS) PO SCH (20:25)
[2023-02-26] MEDS: guaiFENesin ER 600 MG TAB PO SCH (20:25)
[2023-02-26] MEDS: QUEtiapine FUMARATE 100 MG TAB PO SCH (20:25)
[2023-02-26] MEDS: DOXYCYCLINE HYCLATE 100MG TABLET PO SCH (20:25)
[2023-02-26] MEDS: CILOSTAZOL 100 MG TAB (PLETAL) PO SCH (20:25)
[2023-02-27] MEDS: SODIUM CHLORIDE HYPERTONIC 3% 15ML NEB SOL INH SCH ×6 (03:03→23:18)
[2023-02-27] MEDS: ALBUTEROL SULFATE 2.5MG/0.5ML INH NEB SOLN NEB SCH ×6 (03:04→23:18)
[2023-02-27] MEDS: guaiFENesin/CODEINE SYRUP 5 ML UDC PO PRN ×2 (03:35→20:23)
[2023-02-27] MEDS: methylPREDNISolone 40MG 1ML VIAL IV SCH ×3 (05:22→20:23)
[2023-02-27] MEDS: CILOSTAZOL 100 MG TAB (PLETAL) PO SCH ×2 (05:22→20:30)
[2023-02-27 06:00] VITALS: BP 158/75
[2023-02-27 06:04] LABS: BASO % 0.2 % (0.0-1.0); HEMATOCRIT 29.7 % (36.0-47.0); HEMOGLOBIN 9.6 g/dl (12.0-15.5); LYMPH # 0.3 10^3/uL (1.5-5.0); LYMPH % 7.6 % (24.0-44.0); MEAN CORPUSCULAR HEMOGLOBIN 28.2 pg (27.0-33.0); MEAN CORPUSCULAR HGB CONC 32.3 g/dl (32.0-36.5); MEAN CORPUSCULAR VOLUME 87.1 fl (80.0-96.0); MONO # 0.1 10^3/uL (0.0-0.8); MONO % 1.3 % (2.0-8.0); NEUTROPHILS % 89.8 % (36.0-66.0); PLATELET COUNT, AUTOMATED 179 10^3/uL (150-450); RED BLOOD COUNT 3.41 10^6/uL (4.00-5.40); WHITE BLOOD COUNT 4.5 10^3/uL (4.0-10.0)
[2023-02-27 06:36] LABS: BLOOD UREA NITROGEN 17 MG/DL (9-23); CALCIUM LEVEL 8.5 MG/DL (8.3-10.6); CARBON DIOXIDE LEVEL 26 MMOL/L (20-31); CHLORIDE LEVEL 97 MMOL/L (98-107); CREATININE FOR GFR 0.97 MG/DL (0.55-1.30); GLOMERULAR FILTRATION RATE > 60.0 (>39); GLUCOSE, FASTING 204 MG/DL (74-106); POTASSIUM SERUM 3.5 MMOL/L (3.5-5.1); SODIUM LEVEL 133 MMOL/L (136-145)
[2023-02-27] MEDS: TIOTROPIUM INHALER/CAPSULE (SPIRIVA) INH SCH (07:44)
[2023-02-27] MEDS: SYMBICORT 160/4.5MCG INHALER 6GM INH SCH ×2 (07:45→19:26)
[2023-02-27] MEDS: rOPINIRole 1MG TAB PO SCH ×4 (08:26→20:24)
[2023-02-27] MEDS: PRAMIPEXOLE (MIRAPEX) 0.125 MG TAB PO SCH (08:26)
[2023-02-27] MEDS: guaiFENesin ER 600 MG TAB PO SCH ×2 (08:27→20:24)
[2023-02-27] MEDS: ATORVASTATIN 20 MG TAB PO SCH (08:27)
[2023-02-27] MEDS: DOXYCYCLINE HYCLATE 100MG TABLET PO SCH ×2 (08:28→20:24)
[2023-02-27] MEDS: AMIODARONE 200 MG TAB (PACERONE) PO SCH ×2 (08:28→20:24)
[2023-02-27] MEDS: LOSARTAN 25 MG TAB PO SCH (08:28)
[2023-02-27] MEDS: APIXABAN 5 MG TAB (ELIQUIS) PO SCH ×2 (08:28→20:24)
[2023-02-27] MEDS ORDERED: ACETAMINOPHEN TAB 650MG DOSE (2X325MG) PO PRN (10:55)
[2023-02-27] MEDS: KETOROLAC 30 MG/ML 1ML VIAL IV ONE ×2 (11:33→13:01)
[2023-02-27] MEDS: PIPERACILLIN/TAZOBACTAM SOD 3.375 GM in D5W MINI-BAG PLUS 50 ML IV SCH ×3 (12:52→23:46)
[2023-02-27 14:00] VITALS: BP 120/71
[2023-02-27] MEDS ORDERED: cefTRIAXone SOD 1 GM in D5W MINI-BAG PLUS 50 ML IV SCH (15:00)
[2023-02-27 20:17] VITALS: BP 140/68
[2023-02-27] MEDS: QUEtiapine FUMARATE 100 MG TAB PO SCH (20:24)
[2023-02-27] MEDS: PANTOPRAZOLE 40MG TAB (PROTONIX) PO SCH (20:24)
[2023-02-28] MEDS: guaiFENesin/CODEINE SYRUP 5 ML UDC PO PRN ×2 (00:54→08:13)
[2023-02-28] MEDS: SODIUM CHLORIDE HYPERTONIC 3% 15ML NEB SOL INH SCH ×3 (02:58→11:31)
[2023-02-28] MEDS: ALBUTEROL SULFATE 2.5MG/0.5ML INH NEB SOLN NEB SCH ×3 (02:58→11:31)
[2023-02-28 05:41] VITALS: BP 132/74
[2023-02-28] MEDS: CILOSTAZOL 100 MG TAB (PLETAL) PO SCH (06:36)
[2023-02-28] MEDS: methylPREDNISolone 40MG 1ML VIAL IV SCH ×2 (06:36→13:00)
[2023-02-28] MEDS: PIPERACILLIN/TAZOBACTAM SOD 3.375 GM in D5W MINI-BAG PLUS 50 ML IV SCH ×2 (06:36→11:41)
[2023-02-28] MEDS: TIOTROPIUM INHALER/CAPSULE (SPIRIVA) INH SCH (06:58)
[2023-02-28] MEDS: SYMBICORT 160/4.5MCG INHALER 6GM INH SCH (06:59)
[2023-02-28 07:36] LABS: BASO % 0.1 % (0.0-1.0); HEMATOCRIT 30.7 % (36.0-47.0); LYMPH # 0.5 10^3/uL (1.5-5.0); LYMPH % 4.2 % (24.0-44.0); MEAN CORPUSCULAR HEMOGLOBIN 28.3 pg (27.0-33.0); MEAN CORPUSCULAR HGB CONC 32.6 g/dl (32.0-36.5); MONO # 0.6 10^3/uL (0.0-0.8); MONO % 4.7 % (2.0-8.0); NEUTROPHILS # 11.1 10^3/uL (1.5-8.5); NEUTROPHILS % 90.4 % (36.0-66.0); PLATELET COUNT, AUTOMATED 201 10^3/uL (150-450); RED BLOOD COUNT 3.53 10^6/uL (4.00-5.40); WHITE BLOOD COUNT 12.2 10^3/uL (4.0-10.0)
[2023-02-28 07:59] LABS: CALCIUM LEVEL 8.4 MG/DL (8.3-10.6); GLOMERULAR FILTRATION RATE 58.4 (>39); POTASSIUM SERUM 3.3 MMOL/L (3.5-5.1)
[2023-02-28] MEDS: DOXYCYCLINE HYCLATE 100MG TABLET PO SCH (08:12)
[2023-02-28] MEDS: ATORVASTATIN 20 MG TAB PO SCH (08:12)
[2023-02-28] MEDS: APIXABAN 5 MG TAB (ELIQUIS) PO SCH (08:12)
[2023-02-28] MEDS: guaiFENesin ER 600 MG TAB PO SCH (08:12)
[2023-02-28] MEDS: rOPINIRole 1MG TAB PO SCH ×2 (08:12→11:41)
[2023-02-28] MEDS: PRAMIPEXOLE (MIRAPEX) 0.125 MG TAB PO SCH (08:12)
[2023-02-28] MEDS: AMIODARONE 200 MG TAB (PACERONE) PO SCH (08:13)
[2023-02-28 08:16] VITALS: BP 148/56
[2023-02-28] MEDS: LOSARTAN 25 MG TAB PO SCH (08:16)
[2023-02-28] MEDS ORDERED: POTASSIUM CHLORIDE 10MEQ SR TABLET PO ONE (09:00)
[2023-02-28] MEDS ORDERED: MUCI600T31 PO (10:18)
[2023-02-28] MEDS ORDERED: GUAI1SOL7 PO (10:18)
[2023-02-28] MEDS ORDERED: LEVO1TAB40 PO (10:18)
[2023-02-28] MEDS ORDERED: PRED10TA2 PO (10:18)
== END 2023-02-28 15:17 | disposition home or self-care (01) | DRG 194 ==
LOC: M ED 09:13 → EDBD 09:13 → M ED INP 13:51 → ENRESERV 14:12 → M MSPAV 15:37
PROVIDERS: ADMIT Internal Medicine Nephrology; ATTEND Internal Medicine Nephrology
DX: J18.9 Pneumonia, unspecified organism (principal); I48.92 Unspecified atrial flutter; J44.0 Chronic obstructive pulmonary disease with (acute) lower respiratory infection; I50.22 Chronic systolic (congestive) heart failure; E87.1 Hypo-osmolality and hyponatremia; J44.1 Chronic obstructive pulmonary disease with (acute) exacerbation; I48.0 Paroxysmal atrial fibrillation; I27.20 Pulmonary hypertension, unspecified; G25.81 Restless legs syndrome; I08.1 Rheumatic disorders of both mitral and tricuspid valves; M06.9 Rheumatoid arthritis, unspecified; K76.0 Fatty (change of) liver, not elsewhere classified; D63.8 Anemia in other chronic diseases classified elsewhere; R09.02 Hypoxemia; E78.5 Hyperlipidemia, unspecified; I73.9 Peripheral vascular disease, unspecified; Z85.118 Personal history of other malignant neoplasm of bronchus and lung; Z90.2 Acquired absence of lung [part of]; K21.9 Gastro-esophageal reflux disease without esophagitis; E78.00 Pure hypercholesterolemia, unspecified; R53.1 Weakness; D35.02 Benign neoplasm of left adrenal gland; E53.8 Deficiency of other specified B group vitamins; E55.9 Vitamin D deficiency, unspecified; F32.A Depression, unspecified; Z87.891 Personal history of nicotine dependence; Z79.01 Long term (current) use of anticoagulants; Z79.899 Other long term (current) drug therapy; Z88.6 Allergy status to analgesic agent

== ENCOUNTER → 2023-03-28 | Outpatient (CLI) | payer MEDICARE ==
[~2023-03-28] MED LIST changes: +ACET-897 PO; +GUAI1SOL7 PO; +LEVO1TAB40 PO; +MECL-86 PO; +METO1TAB7 PO; +MUCI600T31 PO; +PANT40TA29 PO; +PRED10TA2 PO; +TIZA10TA PO
== END ==
LOC: M LAB 11:53
PROVIDERS: ATTEND Physician Assistant
DX: R06.09 Other forms of dyspnea (principal)

== ENCOUNTER 2023-04-03 16:55 | Inpatient (IN) | payer MEDICARE ==
[~2023-04-03] VITALS: Ht 154.9 cm; Wt 72.3 kg
[~2023-04-03 16:55] MED LIST changes: -ROPI0.5T3; +ROPI0.5T33; -ROPI4TAB3 PO; +ROPI4TAB36 PO
[2023-04-03 17:44] LABS: BASO % 0.3 % (0.0-1.0); EOS # 0.1 10^3/uL (0.0-0.5); HEMATOCRIT 27.3 % (36.0-47.0); HEMOGLOBIN 8.9 g/dl (12.0-15.5); LYMPH # 0.8 10^3/uL (1.5-5.0); LYMPH % 12.7 % (24.0-44.0); MEAN CORPUSCULAR HEMOGLOBIN 28.1 pg (27.0-33.0); MEAN CORPUSCULAR HGB CONC 32.6 g/dl (32.0-36.5); MEAN CORPUSCULAR VOLUME 86.1 fl (80.0-96.0); MONO # 0.6 10^3/uL (0.0-0.8); MONO % 8.9 % (2.0-8.0); NEUTROPHILS # 4.6 10^3/uL (1.5-8.5); NEUTROPHILS % 75.3 % (36.0-66.0); PLATELET COUNT, AUTOMATED 171 10^3/uL (150-450); RED BLOOD COUNT 3.17 10^6/uL (4.00-5.40); WHITE BLOOD COUNT 6.2 10^3/uL (4.0-10.0)
[2023-04-03 18:13] LABS: CPK CREATINE PHOSPHOKINASE 49 U/L (34-145)
[2023-04-03 18:14] LABS: ALBUMIN 2.9 G/DL (3.2-5.2); ALKALINE PHOSPHATASE 110 U/L (46-116); ALT/SGPT 15 U/L (7.0-40); AST/SGOT 11 U/L (<34); BILIRUBIN,DIRECT 0.2 MG/DL (<0.4); BILIRUBIN,TOTAL 0.6 MG/DL (0.3-1.2); BLOOD UREA NITROGEN 14 MG/DL (9-23); CALCIUM LEVEL 8.4 MG/DL (8.3-10.6); CARBON DIOXIDE LEVEL 24 MMOL/L (20-31); CHLORIDE LEVEL 102 MMOL/L (98-107); CK-MB VALUE MASS 2.6 NG/ML (<3.6); CREATININE FOR GFR 0.84 MG/DL (0.55-1.30); GLOMERULAR FILTRATION RATE > 60.0 (>39); GLUCOSE, FASTING 86 MG/DL (74-106); SODIUM LEVEL 132 MMOL/L (136-145); TOTAL PROTEIN 5.6 G/DL (5.7-8.2)
[2023-04-03 18:19] LABS: RSV AMPLIFICATION NEGATIVE (NEGATIVE)
[2023-04-03] MEDS ORDERED: FUROSEMIDE 20MG/2ML VIAL IV ONE (18:50)
[2023-04-03] MEDS ORDERED: MED REC IN PROGRESS XX SCH (21:15)
[2023-04-03] MEDS ORDERED: ALBUTEROL SULFATE 2.5MG/0.5ML INH NEB SOLN NEB PRN (21:30)
[2023-04-03] MEDS ORDERED: ALBU8.5H INH (22:47)
[2023-04-03] MEDS ORDERED: ALBU2.5V10 INH (22:47)
[2023-04-03] MEDS ORDERED: AMIO200T40 PO (22:50)
[2023-04-03] MEDS ORDERED: HOME MED LIST COMPLETE! XX SCH (22:50)
[2023-04-03 23:10] VITALS: BP 157/70; TEMP 98.3; O2SAT 99
[2023-04-04] VITALS (10 sets, daily range): BP systolic 125–182; BP diastolic 59–90; PULSE 43; TEMP 97–97.9; O2SAT 92–94
[2023-04-04] MEDS: IPRATROPIUM 0.5MG/ALBUTEROL 2.5MG INH SOL UD 3ML (DUONEB) NEB SCH ×4 (00:16→23:02)
[2023-04-04] MEDS: MECLIZINE 25 MG TABLET PO PRN ×3 (00:34→23:46)
[2023-04-04] MEDS: rOPINIRole 1MG TAB PO SCH ×5 (00:34→19:27)
[2023-04-04] MEDS: traMADol 50 MG TAB PO PRN ×2 (00:34→18:17)
[2023-04-04] MEDS: QUEtiapine FUMARATE 100 MG TAB PO SCH ×2 (01:09→21:34)
[2023-04-04 06:49] LABS: HEMATOCRIT 29.6 % (36.0-47.0); HEMOGLOBIN 9.6 g/dl (12.0-15.5)
[2023-04-04] MEDS: AMIODARONE 200 MG TAB (PACERONE) PO SCH ×2 (08:50→08:55)
[2023-04-04] MEDS: ATORVASTATIN 20 MG TAB PO SCH (08:50)
[2023-04-04] MEDS: PRAMIPEXOLE (MIRAPEX) 0.125 MG TAB PO SCH (08:50)
[2023-04-04] MEDS: LOSARTAN 25 MG TAB PO SCH (08:52)
[2023-04-04 10:20] LABS: BLOOD UREA NITROGEN 13 MG/DL (9-23); CALCIUM LEVEL 8.6 MG/DL (8.3-10.6); CARBON DIOXIDE LEVEL 25 MMOL/L (20-31); CHLORIDE LEVEL 99 MMOL/L (98-107); CREATININE FOR GFR 0.91 MG/DL (0.55-1.30); GLOMERULAR FILTRATION RATE > 60.0 (>39); GLUCOSE, FASTING 95 MG/DL (74-106); POTASSIUM SERUM 3.4 MMOL/L (3.5-5.1); SODIUM LEVEL 132 MMOL/L (136-145)
[2023-04-04 10:49] LABS: MEAN CORPUSCULAR HEMOGLOBIN 27.9 pg (27.0-33.0); MEAN CORPUSCULAR HGB CONC 32.1 g/dl (32.0-36.5); MEAN CORPUSCULAR VOLUME 87.1 fl (80.0-96.0); PLATELET COUNT, AUTOMATED 188 10^3/uL (150-450); WHITE BLOOD COUNT 5.6 10^3/uL (4.0-10.0)
[2023-04-04] MEDS ORDERED: POTASSIUM CHLORIDE 10MEQ SR TABLET PO ONE (15:25)
[2023-04-04] MEDS ORDERED: MORPHINE 4 MG/ML 1ML VIAL IV ONE (18:55)
[2023-04-04] MEDS: APIXABAN 5 MG TAB (ELIQUIS) PO SCH (19:27)
[2023-04-04 20:22] LABS: THYROID STIMULATING HORMONE 3.505 uIU/ML (0.55-4.78)
[2023-04-04] MEDS ORDERED: QUEtiapine FUMARATE 100 MG TAB PO SCH (21:00)
[2023-04-04] MEDS ORDERED: hydrALAZINE 20MG/ML 1ML VIAL IV ONE ×2 (21:30→23:00)
[2023-04-04] MEDS: tiZANidine 4 MG TAB PO PRN (21:34)
[2023-04-05] VITALS (8 sets, daily range): BP systolic 106–146; BP diastolic 51–78; TEMP 96.8–98.6; O2SAT 95–100
[2023-04-05 05:27] LABS: HEMATOCRIT 28.7 % (36.0-47.0); HEMOGLOBIN 9.3 g/dl (12.0-15.5); MEAN CORPUSCULAR HEMOGLOBIN 27.6 pg (27.0-33.0); MEAN CORPUSCULAR HGB CONC 32.4 g/dl (32.0-36.5); MEAN CORPUSCULAR VOLUME 85.2 fl (80.0-96.0); PLATELET COUNT, AUTOMATED 146 10^3/uL (150-450); RED BLOOD COUNT 3.37 10^6/uL (4.00-5.40); WHITE BLOOD COUNT 4.9 10^3/uL (4.0-10.0)
[2023-04-05 05:54] LABS: BLOOD UREA NITROGEN 13 MG/DL (9-23); CALCIUM LEVEL 8.8 MG/DL (8.3-10.6); CARBON DIOXIDE LEVEL 26 MMOL/L (20-31); CHLORIDE LEVEL 100 MMOL/L (98-107); CREATININE FOR GFR 0.86 MG/DL (0.55-1.30); GLOMERULAR FILTRATION RATE > 60.0 (>39); GLUCOSE, FASTING 107 MG/DL (74-106); MAGNESIUM LEVEL 1.4 MG/DL (1.8-2.4); SODIUM LEVEL 131 MMOL/L (136-145)
[2023-04-05] MEDS: IPRATROPIUM 0.5MG/ALBUTEROL 2.5MG INH SOL UD 3ML (DUONEB) NEB SCH ×3 (08:10→23:17)
[2023-04-05] MEDS: PRAMIPEXOLE (MIRAPEX) 0.125 MG TAB PO SCH (09:09)
[2023-04-05] MEDS: ATORVASTATIN 20 MG TAB PO SCH (09:09)
[2023-04-05] MEDS: APIXABAN 5 MG TAB (ELIQUIS) PO SCH (09:09)
[2023-04-05] MEDS: rOPINIRole 1MG TAB PO SCH ×4 (09:09→20:58)
[2023-04-05] MEDS: MAGNESIUM OXIDE 400MG TAB (MAG-OX) PO SCH ×3 (09:10→20:58)
[2023-04-05] MEDS: LOSARTAN 25 MG TAB PO SCH (09:10)
[2023-04-05] MEDS: FUROSEMIDE 40 MG TAB PO SCH (12:07)
[2023-04-05] MEDS: traMADol 50 MG TAB PO PRN (12:10)
[2023-04-05] MEDS ORDERED: FUROSEMIDE 40 MG TAB PO ONE (18:00)
[2023-04-05] MEDS: MECLIZINE 25 MG TABLET PO PRN (18:11)
[2023-04-05] MEDS: QUEtiapine FUMARATE 100 MG TAB PO SCH (20:58)
[2023-04-05] MEDS: tiZANidine 4 MG TAB PO PRN (20:59)
[2023-04-06] VITALS (7 sets, daily range): BP systolic 102–150; BP diastolic 56–74; TEMP 96.3–97.3; O2SAT 96–99
[2023-04-06 05:48] LABS: HEMATOCRIT 30.6 % (36.0-47.0); HEMOGLOBIN 10.1 g/dl (12.0-15.5); MEAN CORPUSCULAR HEMOGLOBIN 28.1 pg (27.0-33.0); PLATELET COUNT, AUTOMATED 168 10^3/uL (150-450); WHITE BLOOD COUNT 4.9 10^3/uL (4.0-10.0)
[2023-04-06 06:41] LABS: CALCIUM LEVEL 8.9 MG/DL (8.3-10.6); CREATININE FOR GFR 1.15 MG/DL (0.55-1.30); GLOMERULAR FILTRATION RATE 49.7 (>39); MAGNESIUM LEVEL 1.6 MG/DL (1.8-2.4); POTASSIUM SERUM 3.2 MMOL/L (3.5-5.1)
[2023-04-06] MEDS: rOPINIRole 1MG TAB PO SCH ×4 (08:04→20:27)
[2023-04-06] MEDS: POTASSIUM CHLORIDE 10MEQ SR TABLET PO SCH ×2 (08:04→09:33)
[2023-04-06] MEDS: MAG SULF 1GM/100ML (MAG RUN) 1 GM in IV 1 EA IV SCH ×3 (08:05→11:53)
[2023-04-06] MEDS: IPRATROPIUM 0.5MG/ALBUTEROL 2.5MG INH SOL UD 3ML (DUONEB) NEB SCH ×2 (08:27→23:25)
[2023-04-06] MEDS: FUROSEMIDE 40 MG TAB PO SCH (09:33)
[2023-04-06] MEDS: PRAMIPEXOLE (MIRAPEX) 0.125 MG TAB PO SCH (09:33)
[2023-04-06] MEDS: ATORVASTATIN 20 MG TAB PO SCH (09:33)
[2023-04-06] MEDS: LOSARTAN 25 MG TAB PO SCH (09:34)
[2023-04-06] MEDS: MAGNESIUM OXIDE 400MG TAB (MAG-OX) PO SCH ×4 (09:34→23:52)
[2023-04-06] MEDS: traMADol 50 MG TAB PO PRN (09:39)
[2023-04-06] MEDS: MECLIZINE 25 MG TABLET PO PRN (13:09)
[2023-04-06] MEDS ORDERED: FUROSEMIDE 40 MG TAB PO ONE (17:45)
[2023-04-06] MEDS ORDERED: CALCIUM CARBONATE 500 MG CHEW U/D PO PRN (18:10)
[2023-04-06] MEDS ORDERED: rOPINIRole 2MG TAB PO SCH (20:24)
[2023-04-06] MEDS: QUEtiapine FUMARATE 100 MG TAB PO SCH (20:27)
[2023-04-06] MEDS: tiZANidine 4 MG TAB PO PRN (20:27)
[2023-04-06] MEDS ORDERED: ACETAMINOPHEN TAB 650MG DOSE (2X325MG) PO PRN (21:05)
[2023-04-06] MEDS: ASCORBIC ACID 250 MG TAB PO SCH (23:52)
[2023-04-07] VITALS (10 sets, daily range): BP systolic 115–191; BP diastolic 57–80; TEMP 96.8–97.6; O2SAT 93–100
[2023-04-07] MEDS: traMADol 50 MG TAB PO PRN ×2 (03:45→10:49)
[2023-04-07] MEDS: NS 1,000 ML IV SCH ×2 (05:16→21:10)
[2023-04-07 06:13] LABS: HEMATOCRIT 30.7 % (36.0-47.0); HEMOGLOBIN 9.8 g/dl (12.0-15.5); MEAN CORPUSCULAR HEMOGLOBIN 27.3 pg (27.0-33.0); MEAN CORPUSCULAR HGB CONC 31.9 g/dl (32.0-36.5); MEAN CORPUSCULAR VOLUME 85.5 fl (80.0-96.0); PLATELET COUNT, AUTOMATED 156 10^3/uL (150-450); RED BLOOD COUNT 3.59 10^6/uL (4.00-5.40); WHITE BLOOD COUNT 4.2 10^3/uL (4.0-10.0)
[2023-04-07 06:45] LABS: BLOOD UREA NITROGEN 18 MG/DL (9-23); CALCIUM LEVEL 8.2 MG/DL (8.3-10.6); CARBON DIOXIDE LEVEL 29 MMOL/L (20-31); CHLORIDE LEVEL 96 MMOL/L (98-107); CREATININE FOR GFR 0.97 MG/DL (0.55-1.30); GLOMERULAR FILTRATION RATE > 60.0 (>39); GLUCOSE, FASTING 98 MG/DL (74-106); MAGNESIUM LEVEL 2.2 MG/DL (1.8-2.4); SODIUM LEVEL 131 MMOL/L (136-145)
[2023-04-07] MEDS: IPRATROPIUM 0.5MG/ALBUTEROL 2.5MG INH SOL UD 3ML (DUONEB) NEB SCH ×3 (07:09→23:39)
[2023-04-07] MEDS: ASCORBIC ACID 250 MG TAB PO SCH ×2 (08:45→21:02)
[2023-04-07] MEDS: PRAMIPEXOLE (MIRAPEX) 0.125 MG TAB PO SCH (08:45)
[2023-04-07] MEDS: ATORVASTATIN 20 MG TAB PO SCH (08:45)
[2023-04-07] MEDS: MAGNESIUM OXIDE 400MG TAB (MAG-OX) PO SCH ×2 (08:45→21:04)
[2023-04-07] MEDS: rOPINIRole 1MG TAB PO SCH ×4 (08:45→21:04)
[2023-04-07] MEDS: FUROSEMIDE 40 MG TAB PO SCH (08:45)
[2023-04-07] MEDS: LOSARTAN 25 MG TAB PO SCH (08:46)
[2023-04-07] MEDS ORDERED: methylPREDNISolone 125MG 2ML VIAL IV ONE (13:45)
[2023-04-07] MEDS ORDERED: ceFAZolin SOD 2 GM in IV 1 EA IV ONE (15:00)
[2023-04-07] MEDS ORDERED: ISOVUE-300 61% 100ML VIAL As Ordered ONE (17:28)
[2023-04-07] MEDS ORDERED: LIDOCAINE 1% SDV 30ML VIAL As Ordered ONE (17:28)
[2023-04-07] MEDS ORDERED: MUPIROCIN 2% OINT 22 GM TUBE As Ordered ONE (17:29)
[2023-04-07] MEDS ORDERED: propofoL 200 MG/20 ML VIAL As Ordered ONE (17:40)
[2023-04-07] MEDS ORDERED: LIDOCAINE 2% 100MG/5ML SDV (FOR ANES.) As Ordered ONE (17:40)
[2023-04-07] MEDS ORDERED: MIDAZOLAM INJ 2MG/2ML VIAL As Ordered ONE (17:40)
[2023-04-07] MEDS ORDERED: fentaNYL 100 MCG/2 ML INJECTION As Ordered ONE (17:45)
[2023-04-07] MEDS ORDERED: BACITRACIN OINTMENT 30GM TUBE As Ordered ONE (17:47)
[2023-04-07] MEDS ORDERED: ONDANSETRON 4MG 2ML VIAL As Ordered ONE (18:37)
[2023-04-07] MEDS ORDERED: ACETAMINOPHEN 1000MG 100ML IV BAG As Ordered ONE (18:37)
[2023-04-07] MEDS ORDERED: hydrALAZINE 20MG/ML 1ML VIAL As Ordered ONE (18:43)
[2023-04-07] MEDS ORDERED: ONDANSETRON 4MG 2ML VIAL IV PRN (19:40)
[2023-04-07] MEDS ORDERED: oxyCODONE 5MG TAB PO PRN (19:40)
[2023-04-07] MEDS ORDERED: HYDROMORPHONE HCL 0.5 MG/ 0.5 ML SYRINGE IV PRN (19:40)
[2023-04-07] MEDS ORDERED: fentaNYL 100 MCG/2 ML INJECTION IV PRN (19:40)
[2023-04-07] MEDS: QUEtiapine FUMARATE 100 MG TAB PO SCH (21:04)
[2023-04-07] MEDS: tiZANidine 4 MG TAB PO PRN (22:46)
[2023-04-08 04:24] VITALS: BP 111/54; TEMP 98.1; O2SAT 99
[2023-04-08 05:10] LABS: HEMATOCRIT 31.9 % (36.0-47.0); MEAN CORPUSCULAR HEMOGLOBIN 27.5 pg (27.0-33.0); MEAN CORPUSCULAR HGB CONC 31.3 g/dl (32.0-36.5); MEAN CORPUSCULAR VOLUME 87.9 fl (80.0-96.0); PLATELET COUNT, AUTOMATED 153 10^3/uL (150-450); RED BLOOD COUNT 3.63 10^6/uL (4.00-5.40)
[2023-04-08 05:35] LABS: BLOOD UREA NITROGEN 15 MG/DL (9-23); CARBON DIOXIDE LEVEL 25 MMOL/L (20-31); CHLORIDE LEVEL 97 MMOL/L (98-107); CREATININE FOR GFR 0.79 MG/DL (0.55-1.30); GLOMERULAR FILTRATION RATE > 60.0 (>39); GLUCOSE, FASTING 202 MG/DL (74-106); POTASSIUM SERUM 3.8 MMOL/L (3.5-5.1); SODIUM LEVEL 131 MMOL/L (136-145)
[2023-04-08] MEDS: rOPINIRole 1MG TAB PO SCH ×2 (07:55→13:46)
[2023-04-08 07:56] VITALS: BP 111/54
[2023-04-08] MEDS: PRAMIPEXOLE (MIRAPEX) 0.125 MG TAB PO SCH (07:56)
[2023-04-08] MEDS: MECLIZINE 25 MG TABLET PO PRN (07:56)
[2023-04-08] MEDS: LOSARTAN 25 MG TAB PO SCH (07:56)
[2023-04-08] MEDS: ATORVASTATIN 20 MG TAB PO SCH (07:56)
[2023-04-08] MEDS: MAGNESIUM OXIDE 400MG TAB (MAG-OX) PO SCH (07:57)
[2023-04-08] MEDS: ASCORBIC ACID 250 MG TAB PO SCH (07:57)
[2023-04-08] MEDS: traMADol 50 MG TAB PO PRN ×2 (07:58→13:49)
[2023-04-08] MEDS: FUROSEMIDE 40 MG TAB PO SCH (07:58)
[2023-04-08 08:03] VITALS: BP 147/70; TEMP 97; O2SAT 98
[2023-04-08] MEDS: IPRATROPIUM 0.5MG/ALBUTEROL 2.5MG INH SOL UD 3ML (DUONEB) NEB SCH ×2 (08:43→14:23)
[2023-04-08] MEDS ORDERED: AMIODARONE 200 MG TAB (PACERONE) PO SCH (09:00)
[2023-04-08] MEDS ORDERED: MORPHINE 4 MG/ML 1ML VIAL IV PRN (09:30)
[2023-04-08] MEDS ORDERED: TRAM50TA2 PO ×2 (13:04→13:07)
[2023-04-08] MEDS ORDERED: METO1TAB7 PO (13:04)
[2023-04-08] MEDS ORDERED: ASCO250T20 PO (13:04)
[2023-04-08] MEDS ORDERED: FURO40TA2 PO (13:04)
[2023-04-08 13:06] VITALS: BP 124/58; TEMP 97.9; O2SAT 98
[2023-04-08] MEDS ORDERED: APIXABAN 5 MG TAB (ELIQUIS) PO SCH (21:00)
== END 2023-04-08 15:18 | disposition home or self-care (01) | DRG 242 ==
LOC: M ED 16:55 → EDBD 16:55 → M ED INP 21:22 → M PCU 23:04
PROVIDERS: ADMIT Internal Medicine; ATTEND Student in an Organized Health Care Education/Training Program
PROC: B246ZZZ Ultrasonography of Right and Left Heart (ICD-10-PCS; 2023-04-07)
PROC: 0JH606Z Insertion of Pacemaker, Dual Chamber into Chest Subcutaneous Tissue and Fascia, Open Approach (ICD-10-PCS; principal; 2023-04-08)
PROC: 02HK3JZ Insertion of Pacemaker Lead into Right Ventricle, Percutaneous Approach (ICD-10-PCS; 2023-04-08)
PROC: 02H63JZ Insertion of Pacemaker Lead into Right Atrium, Percutaneous Approach (ICD-10-PCS; 2023-04-08)
DX: I49.5 Sick sinus syndrome (principal); I50.33 Acute on chronic diastolic (congestive) heart failure; I45.89 Other specified conduction disorders; I11.0 Hypertensive heart disease with heart failure; M54.9 Dorsalgia, unspecified; G25.81 Restless legs syndrome; G47.00 Insomnia, unspecified; R09.02 Hypoxemia; K21.9 Gastro-esophageal reflux disease without esophagitis; E78.5 Hyperlipidemia, unspecified; I73.9 Peripheral vascular disease, unspecified; E87.6 Hypokalemia; I48.91 Unspecified atrial fibrillation; Z87.891 Personal history of nicotine dependence; D64.9 Anemia, unspecified; J44.9 Chronic obstructive pulmonary disease, unspecified; Z85.118 Personal history of other malignant neoplasm of bronchus and lung; Z90.2 Acquired absence of lung [part of]; Z90.79 Acquired absence of other genital organ(s); F41.1 Generalized anxiety disorder; Z79.01 Long term (current) use of anticoagulants; Z79.899 Other long term (current) drug therapy; Z88.6 Allergy status to analgesic agent; Z20.822 Contact with and (suspected) exposure to COVID-19

== ENCOUNTER 2023-05-22 12:24 | Day surgery (SDC) | payer MEDICAID, MEDICARE ==
[~2023-05-22] VITALS: Ht 157.5 cm; Wt 74.0 kg
[~2023-05-22 12:24] MED LIST changes: +ALBU2.5V10 INH; +ALBU8.5H INH; +AMIO200T40 PO; +ASCO250T20 PO; +FURO40TA2 PO; +NS 1,000 ML IV ONE
[2023-05-22] MEDS ORDERED: propofoL 200 MG/20 ML VIAL As Ordered ONE (13:44)
[2023-05-22] MEDS ORDERED: LIDOCAINE 2% 100MG/5ML SDV (FOR ANES.) As Ordered ONE (13:44)
[2023-05-22] MEDS ORDERED: GLYCOPYRROLATE INJ 0.2 MG/ML 2 ML VIAL As Ordered ONE (13:44)
[2023-05-22 14:31] VITALS: BP 144/90; O2SAT 100
== END 2023-05-22 14:58 | disposition home or self-care (01) ==
LOC: M OPP 12:24
PROVIDERS: ATTEND Internal Medicine Gastroenterology
DX: Z12.11 Encounter for screening for malignant neoplasm of colon (principal); K63.5 Polyp of colon; K64.4 Residual hemorrhoidal skin tags; K64.8 Other hemorrhoids; K44.9 Diaphragmatic hernia without obstruction or gangrene; K31.A19 Gastric intestinal metaplasia without dysplasia, unspecified site; K30 Functional dyspepsia; Z87.891 Personal history of nicotine dependence; Z79.01 Long term (current) use of anticoagulants; Z79.02 Long term (current) use of antithrombotics/antiplatelets; Z79.51 Long term (current) use of inhaled steroids; Z79.891 Long term (current) use of opiate analgesic; Z79.899 Other long term (current) drug therapy; Z88.6 Allergy status to analgesic agent

== ENCOUNTER → 2023-07-05 | Outpatient (CLI) | payer MEDICARE ==
[~2023-07-05] MED LIST changes: -NS 1,000 ML IV ONE
== END ==
LOC: M PLAIMG 11:23
PROVIDERS: ATTEND Internal Medicine Pulmonary Disease
DX: R91.8 Other nonspecific abnormal finding of lung field (principal)

== ENCOUNTER 2023-10-06 10:41 | Day surgery (SDC) | payer MEDICARE ==
[~2023-10-06] VITALS: Ht 157.5 cm; Wt 78.7 kg
[~2023-10-06 10:41] MED LIST changes: +ACETAMINOPHEN TAB 650MG DOSE (2X325MG) PO ONE; +INDOCYANINE GREEN 25MG VIAL (IC-GREEN) IV ONE; +LIDOCAINE 2% 100MG/5ML SDV (FOR ANES.) As Ordered ONE; +MIDAZOLAM INJ 2MG/2ML VIAL As Ordered ONE; +ONDANSETRON 4MG 2ML VIAL As Ordered ONE; +ROCURONIUM BROMIDE 50MG/5ML VIAL As Ordered ONE; +URSO300C3 PO; +ceFAZolin SOD 2 GM in IV 1 EA IV ONE; +fentaNYL 100 MCG/2 ML INJECTION As Ordered ONE; +propofoL 200 MG/20 ML VIAL As Ordered ONE
[2023-10-06] MEDS ORDERED: LR 1,000 ML IV SCH ×2 (10:50→15:50)
[2023-10-06] MEDS ORDERED: ALBUTEROL SULFATE 2.5MG/0.5ML INH NEB SOLN NEB ONE (11:55)
[2023-10-06] MEDS ORDERED: LIDOCAINE 1% SDV 30ML VIAL As Ordered ONE (13:44)
[2023-10-06] MEDS ORDERED: INDOCYANINE GREEN 25MG VIAL (IC-GREEN) As Ordered ONE (13:45)
[2023-10-06] MEDS ORDERED: LACRILUBE (AKWA TEARS) OPHTH OINT 3.5GM As Ordered ONE (14:26)
[2023-10-06] MEDS ORDERED: SUGAMMADEX SODIUM 500 MG/5 ML VIAL (BRIDION) As Ordered ONE (14:49)
[2023-10-06] MEDS ORDERED: ePHEDrine SULFATE 25 MG/5 ML(5MG/ML) SYRINGE As Ordered ONE (15:21)
[2023-10-06] MEDS ORDERED: PHENYLephrine 500MCG 5ML (100MCG/ML) SYRINGE As Ordered ONE (15:21)
[2023-10-06] MEDS ORDERED: fentaNYL 100 MCG/2 ML INJECTION As Ordered ONE (15:24)
[2023-10-06] MEDS ORDERED: ALBUTEROL 6.7GM INHALER **FOR ANES. CART/OMNICELL ONLY As Ordered ONE (15:47)
[2023-10-06] MEDS ORDERED: fentaNYL 100 MCG/2 ML INJECTION IV PRN (15:50)
[2023-10-06] MEDS ORDERED: HYDROMORPHONE HCL 0.5 MG/ 0.5 ML SYRINGE IV PRN (15:50)
[2023-10-06] MEDS ORDERED: ONDANSETRON 4MG 2ML VIAL IV PRN (15:50)
[2023-10-06] MEDS ORDERED: oxyCODONE 5MG TAB PO PRN (15:50)
[2023-10-06 17:30] VITALS: BP 149/70; TEMP 97.9; O2SAT 97
== END 2023-10-06 17:43 | disposition home or self-care (01) ==
LOC: M SDC 10:41
PROVIDERS: ATTEND Surgery
DX: K82.8 Other specified diseases of gallbladder (principal); K74.60 Unspecified cirrhosis of liver; I48.91 Unspecified atrial fibrillation; Z95.0 Presence of cardiac pacemaker; I10 Essential (primary) hypertension; E78.00 Pure hypercholesterolemia, unspecified; M06.9 Rheumatoid arthritis, unspecified; M79.7 Fibromyalgia; G25.81 Restless legs syndrome; J44.9 Chronic obstructive pulmonary disease, unspecified; Z85.118 Personal history of other malignant neoplasm of bronchus and lung; F17.210 Nicotine dependence, cigarettes, uncomplicated; Z88.8 Allergy status to other drugs, medicaments and biological substances; Z79.899 Other long term (current) drug therapy; Z79.01 Long term (current) use of anticoagulants; Z79.891 Long term (current) use of opiate analgesic
CPT/HCPCS: 47563; 64488; 88304; J0665; J0690; J1100; J2250; J2371; J2405; J3010; Q9968; S2900

== ENCOUNTER → 2023-11-28 | Outpatient (CLI) | payer MEDICARE ==
[~2023-11-28] MED LIST changes: -ACETAMINOPHEN TAB 650MG DOSE (2X325MG) PO ONE; -INDOCYANINE GREEN 25MG VIAL (IC-GREEN) IV ONE; +ISOVUE-300 61% 100ML VIAL As Ordered ONE; +LIDOCAINE 1% MDV 20ML VIAL As Ordered ONE; -LIDOCAINE 2% 100MG/5ML SDV (FOR ANES.) As Ordered ONE; -MIDAZOLAM INJ 2MG/2ML VIAL As Ordered ONE; -ONDANSETRON 4MG 2ML VIAL As Ordered ONE; -ROCURONIUM BROMIDE 50MG/5ML VIAL As Ordered ONE; -ceFAZolin SOD 2 GM in IV 1 EA IV ONE; -fentaNYL 100 MCG/2 ML INJECTION As Ordered ONE; +methylPREDNISolone SUSP 40MG/ML 1ML VIAL (DEPO MEDROL) As Ordered ONE; -propofoL 200 MG/20 ML VIAL As Ordered ONE
== END ==
LOC: M RAD 10:17
PROVIDERS: ATTEND Physician Assistant
DX: M16.11 Unilateral primary osteoarthritis, right hip (principal)
CPT/HCPCS: 20610; 77002; J1030; Q9967

== ENCOUNTER → 2024-01-23 | Outpatient (CLI) | payer MEDICARE ==
[~2024-01-23] MED LIST changes: -ISOVUE-300 61% 100ML VIAL As Ordered ONE; -LIDOCAINE 1% MDV 20ML VIAL As Ordered ONE; -methylPREDNISolone SUSP 40MG/ML 1ML VIAL (DEPO MEDROL) As Ordered ONE
== END ==
LOC: M SLEEP 20:00
PROVIDERS: ATTEND Physician Assistant
DX: G47.33 Obstructive sleep apnea (adult) (pediatric) (principal)

== ENCOUNTER 2025-01-21 19:24 | Inpatient (IN) | payer MEDICARE ==
[~2025-01-21] VITALS: Ht 152.4 cm; Wt 70.0 kg
[~2025-01-21 19:24] MED LIST changes: -CLOT10TR PO; +CLOT10TR11 PO; +ONDA-282; -ONDA4TAB6
[2025-01-21] MEDS: ONDANSETRON 4MG ORAL DISINTEGRATING TAB PO ONE (20:26)
[2025-01-21 20:38] LABS: BASO % 0.6 % (0.0-1.0); EOS # 0.1 10^3/uL (0.0-0.5); EOS % 2.1 % (0.0-3.0); HEMATOCRIT 37.8 % (36.0-47.0); HEMOGLOBIN 12.4 g/dl (12.0-15.5); LYMPH # 1.1 10^3/uL (1.5-5.0); LYMPH % 23.4 % (24.0-44.0); MEAN CORPUSCULAR HEMOGLOBIN 29.4 pg (27.0-33.0); MEAN CORPUSCULAR HGB CONC 32.8 g/dl (32.0-36.5); MEAN CORPUSCULAR VOLUME 89.6 fl (80.0-96.0); MONO # 0.4 10^3/uL (0.0-0.8); MONO % 9.4 % (2.0-8.0); NEUTROPHILS % 64.1 % (36.0-66.0); PLATELET COUNT, AUTOMATED 122 10^3/uL (150-450); RED BLOOD COUNT 4.22 10^6/uL (4.00-5.40); WHITE BLOOD COUNT 4.7 10^3/uL (4.0-10.0)
[2025-01-21 20:59] LABS: MB/CK RELATIVE INDEX 2.85 (< OR =4)
[2025-01-21 21:00] LABS: ALBUMIN 3.7 G/DL (3.2-5.2); BILIRUBIN,DIRECT 0.1 MG/DL (<0.4); BILIRUBIN,TOTAL 0.3 MG/DL (0.3-1.2); CALCIUM LEVEL 9.3 MG/DL (8.3-10.6); CREATININE FOR GFR 1.06 MG/DL (0.55-1.30); GLOMERULAR FILTRATION RATE 56.2 (>39); POTASSIUM SERUM 3.8 MMOL/L (3.5-5.1); TOTAL PROTEIN 6.6 G/DL (5.7-8.2)
[2025-01-21 21:01] LABS: THYROID STIMULATING HORMONE 3.776 uIU/ML (0.55-4.78)
[2025-01-21 21:02] LABS: FREE T4 1.04 NG/DL (0.89-1.76)
[2025-01-21 21:11] LABS: INR 1.1; PARTIAL THROMBOPLASTIN TIME 27.3 SECONDS (24.8-34.2); PROTHROMBIN TIME 14.5 SECONDS (12.5-14.5)
[2025-01-21] MEDS: METOPROLOL 5 MG/5 ML VIAL IV SCH (21:18)
[2025-01-21 21:56] LABS: CK-MB VALUE MASS 2.1 NG/ML (<3.6)
[2025-01-21 21:57] LABS: MB/CK RELATIVE INDEX 3.08 (< OR =4)
[2025-01-21] MEDS ORDERED: ISOVUE-370 76% 100ML VIAL As Ordered ONE (22:17)
[2025-01-21] MEDS ORDERED: MOM 30ML SUSPENSION UDC PO PRN (23:30)
[2025-01-21] MEDS: DIGOXIN INJ 0.5 MG/2 ML AMP IV STA (23:33)
[2025-01-21] MEDS ORDERED: FLUT1BLS8 INH (23:44)
[2025-01-21] MEDS ORDERED: QUET150T14 PO (23:44)
[2025-01-21] MEDS ORDERED: TRAM50TA2 PO (23:44)
[2025-01-21] MEDS ORDERED: FURO20TA2 PO (23:44)
[2025-01-21] MEDS ORDERED: AMIO200T49 PO (23:44)
[2025-01-22] VITALS (9 sets, daily range): BP systolic 138–190; BP diastolic 79–122; PULSE 91; TEMP 96.2–98.4; O2SAT 96–99
[2025-01-22 00:21] LABS: CK-MB VALUE MASS 1.8 NG/ML (<3.6); MB/CK RELATIVE INDEX 2.76 (< OR =4)
[2025-01-22 05:39] LABS: HEMATOCRIT 36.5 % (36.0-47.0); HEMOGLOBIN 11.8 g/dl (12.0-15.5); MEAN CORPUSCULAR HEMOGLOBIN 28.9 pg (27.0-33.0); MEAN CORPUSCULAR HGB CONC 32.3 g/dl (32.0-36.5); MEAN CORPUSCULAR VOLUME 89.2 fl (80.0-96.0); PLATELET COUNT, AUTOMATED 126 10^3/uL (150-450); RED BLOOD COUNT 4.09 10^6/uL (4.00-5.40); WHITE BLOOD COUNT 5.3 10^3/uL (4.0-10.0)
[2025-01-22 05:57] LABS: ALBUMIN 3.5 G/DL (3.2-5.2); BILIRUBIN,TOTAL 0.4 MG/DL (0.3-1.2); CALCIUM LEVEL 8.8 MG/DL (8.3-10.6); CREATININE FOR GFR 0.94 MG/DL (0.55-1.30); GLOMERULAR FILTRATION RATE 64.9 (>39); POTASSIUM SERUM 3.8 MMOL/L (3.5-5.1); TOTAL PROTEIN 6.2 G/DL (5.7-8.2)
[2025-01-22] MEDS: DIGOXIN INJ 0.5 MG/2 ML AMP IV ONE (06:10)
[2025-01-22] MEDS: PRAMIPEXOLE (MIRAPEX) 0.125 MG TAB PO SCH (08:15)
[2025-01-22] MEDS: POTASSIUM CHLORIDE 10MEQ SR TABLET PO SCH (08:16)
[2025-01-22] MEDS: ATORVASTATIN 20 MG TAB PO SCH (08:18)
[2025-01-22] MEDS: METOPROLOL TART 25 MG TABLET PO SCH (08:18)
[2025-01-22] MEDS: LOSARTAN 25 MG TAB PO SCH (08:18)
[2025-01-22] MEDS: rOPINIRole 2MG TAB PO SCH (08:19)
[2025-01-22] MEDS: APIXABAN 5 MG TAB (ELIQUIS) PO SCH (08:19)
[2025-01-22] MEDS: DOCUSATE SODIUM 100MG CAPSULE PO SCH (08:19)
[2025-01-22] MEDS ORDERED: FUROSEMIDE 20 MG TAB PO SCH (09:00)
[2025-01-22] MEDS ORDERED: MECLIZINE 25 MG TABLET PO PRN (09:00)
[2025-01-22] MEDS ORDERED: METOPROLOL SUCC (TopROL XL) 50MG **XL** TAB PO SCH (09:00)
[2025-01-22] MEDS ORDERED: AMIODARONE 200 MG TAB (PACERONE) PO SCH (09:00)
[2025-01-22] MEDS ORDERED: ENOXAPARIN 40MG/0.4ML SYRINGE (J1650 PER 10MG) SC SCH (09:00)
[2025-01-22] MEDS ORDERED: DIGOXIN 0.125 MG TAB PO SCH (09:00)
[2025-01-22] MEDS ORDERED: ALBUTEROL 90 MCG/ACT 8GM HFA INHALER INH PRN (11:00)
[2025-01-22] MEDS: traMADol 50 MG TAB PO PRN (11:13)
[2025-01-22] MEDS: DIGOXIN 0.25 MG TAB PO SCH (11:15)
[2025-01-22] MEDS: LOSARTAN 25 MG TAB PO ONE (14:11)
[2025-01-22] MEDS: LABETALOL 100MG/20ML VIAL IV ONE (16:42)
[2025-01-22] MEDS: tiZANidine 4 MG TAB PO PRN (17:09)
[2025-01-22] MEDS: hydroCHLOROthiazide 12.5 MG CAPSULE PO SCH (17:10)
[2025-01-22] MEDS: ADVAIR HFA 230/21MCG INHALER INH SCH (19:41)
[2025-01-22] MEDS: QUEtiapine FUMERATE XR 50MG TABER PO SCH (20:07)
[2025-01-22] MEDS: METOPROLOL SUCC (TopROL XL) 100MG *XL* TAB PO SCH (20:07)
[2025-01-22] MEDS: LIDOCAINE 5% (LIDODERM) PATCH TD SCH (20:08)
[2025-01-23] VITALS (7 sets, daily range): BP systolic 140–186; BP diastolic 84–100; TEMP 97.4–97.7; O2SAT 96–100
[2025-01-23] MEDS: MORPHINE 10MG/0.5ML ORAL CONCENTRATE SOLUTION U/D SL PRN (05:04)
[2025-01-23 05:44] LABS: BASO % 0.4 % (0.0-1.0); EOS # 0.2 10^3/uL (0.0-0.5); EOS % 2.9 % (0.0-3.0); HEMATOCRIT 38.4 % (36.0-47.0); HEMOGLOBIN 12.8 g/dl (12.0-15.5); LYMPH # 1.1 10^3/uL (1.5-5.0); LYMPH % 20.6 % (24.0-44.0); MEAN CORPUSCULAR HEMOGLOBIN 29.4 pg (27.0-33.0); MEAN CORPUSCULAR HGB CONC 33.3 g/dl (32.0-36.5); MEAN CORPUSCULAR VOLUME 88.1 fl (80.0-96.0); MONO # 0.3 10^3/uL (0.0-0.8); MONO % 6.3 % (2.0-8.0); NEUTROPHILS # 3.5 10^3/uL (1.5-8.5); NEUTROPHILS % 69.4 % (36.0-66.0); PLATELET COUNT, AUTOMATED 128 10^3/uL (150-450); RED BLOOD COUNT 4.36 10^6/uL (4.00-5.40); WHITE BLOOD COUNT 5.1 10^3/uL (4.0-10.0)
[2025-01-23 06:12] LABS: CREATININE FOR GFR 0.97 MG/DL (0.55-1.30); GLOMERULAR FILTRATION RATE 62.5 (>39); POTASSIUM SERUM 3.7 MMOL/L (3.5-5.1)
[2025-01-23] MEDS: TIOTROPIUM BROM 2.5MCG/ACTUATION 4GM INH IH SCH (08:02)
[2025-01-23] MEDS: LOSARTAN 50MG TABLET PO SCH (09:02)
[2025-01-23] MEDS: DIGOXIN 0.125 MG TAB PO SCH (09:04)
[2025-01-23] MEDS ORDERED: METO1TAB33 PO (10:25)
[2025-01-23] MEDS ORDERED: LOSA50TA5 PO (10:25)
[2025-01-23] MEDS ORDERED: DIGO0.123 PO (10:28)
[2025-01-23] MEDS ORDERED: LIDO5TD TOP (11:07)
== END 2025-01-23 12:40 | disposition home or self-care (01) | DRG 310 ==
LOC: M ED 19:24 → M ED INP 23:30 → M PCU 01-22 01:59
PROVIDERS: ADMIT Family Medicine; ATTEND Family Medicine
DX: I48.91 Unspecified atrial fibrillation (principal); I48.92 Unspecified atrial flutter; I11.0 Hypertensive heart disease with heart failure; M54.9 Dorsalgia, unspecified; G89.29 Other chronic pain; G25.81 Restless legs syndrome; I73.9 Peripheral vascular disease, unspecified; F41.9 Anxiety disorder, unspecified; F32.A Depression, unspecified; F17.210 Nicotine dependence, cigarettes, uncomplicated; I25.10 Atherosclerotic heart disease of native coronary artery without angina pectoris; J44.9 Chronic obstructive pulmonary disease, unspecified; I50.9 Heart failure, unspecified; Z85.118 Personal history of other malignant neoplasm of bronchus and lung; Z90.2 Acquired absence of lung [part of]; Z79.01 Long term (current) use of anticoagulants; Z79.899 Other long term (current) drug therapy; Z88.6 Allergy status to analgesic agent

== ENCOUNTER → 2025-05-23 | Outpatient (CLI) | payer MEDICARE ==
[~2025-05-23] MED LIST changes: -AMIO200T49 PO; +AMIO200T54 PO; +FLUT1BLS8 INH; +FURO20TA2 PO; +LIDO5TD TOP; +LOSA50TA5 PO; +METO1TAB33 PO; +QUET150T14 PO
== END ==
LOC: M RAD 10:23
PROVIDERS: ATTEND Nurse Practitioner Family
DX: M89.9 Disorder of bone, unspecified (principal); Z85.118 Personal history of other malignant neoplasm of bronchus and lung
CPT/HCPCS: 78306; A9503